=== PATIENT | female | born 1980 | race Caucasian/White ===

== ENCOUNTER 2017-03-18 17:48 | Inpatient (IN) | payer MEDICAID ==
[~2017-03-18] VITALS: Ht 157.5 cm; Wt 51.4 kg
[2017-03-18 18:40] VITALS: BP 153/73
--- NOTE | 2017-03-18 23:10 | NUR ---
37 Y/O F W/C/O L THIGH PAIN/SWELLING X 1K GETTING WORSE X LAST FRIDAY. PT STATES WAS SEEN BY PMD AND REFERER TO ER FOR ULTRASOUND. DENIES ANY CHEST PAIN OR SOB. 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
[2017-03-18 23:40] LABS: BASOPHILS # (AUTO) 0.1 K/uL (0.00-0.22); EOSINOPHILS # (AUTO) 0.1 K/uL (0-0.4); EOSINOPHILS % (AUTO) 1.1 % (0.0-4.0); HEMOGLOBIN 10.2 g/dL (12.0-16.0); LYMPHOCYTES # (AUTO) 1.2 K/uL (2.5-16.5); LYMPHOCYTES % (AUTO) 12.2 % (20.5-51.1); MEAN CORPUSCULAR HEMOGLOBIN 23 pg (27-31); MEAN CORPUSCULAR HGB CONC 31 g/dL (33-37); MEAN CORPUSCULAR VOLUME 73 fL (80-94); MONOCYTES # (AUTO) 0.5 K/uL (0.8-1.0); MONOCYTES % (AUTO) 5.5 % (1.7-9.3); NEUTROPHILS # (AUTO) 7.7 K/uL (1.8-7.7); NEUTROPHILS % (AUTO) 80.2 % (42.2-75.2); PLATELET COUNT (AUTO) 340 K/uL (140-450); RED BLOOD CELL COUNT(AUTO) 4.51 MIL/uL (4.20-5.40); RED CELL DISTRIBUTION WIDTH 16.7 % (11.6-13.7); WHITE BLOOD COUNT (AUTO) 9.6 K/uL (4.8-10.8)
[2017-03-18 23:50] LABS: ANION GAP 11.3 (8-16); CARBON DIOXIDE 26.5 mmol/L (21-32); CREATININE 0.6 mg/dL (0.6-1.3); POTASSIUM 3.8 mmol/L (3.5-5.1)
[2017-03-18 23:56] LABS: ALBUMIN 3.5 g/dL (3.4-5.0); TOTAL BILIRUBIN 0.4 mg/dL (0.0-1.0)
[2017-03-19] MEDS ORDERED: HEPARIN PER PHARMACY MC PRN ×2 (00:15→01:10)
[2017-03-19 00:30] LABS: PROTHROMBIN TIME 11.6 secs (10.8-13.4)
[2017-03-19] MEDS ORDERED: hePARIN / DEXT 5% PREMIX 250 ML IV ONE (00:35)
--- NOTE | 2017-03-19 00:48 | NUR ---
ULTRASOUND FOR LOWER EXTREMITY: IMPRESSION +DTV TO MAJORITY OF LOWER EXTREMITY.
[2017-03-19] MEDS ORDERED: methylPREDNISolone SS 125 MG in WATER STERILE 2 ML IV ONE (01:05)
[2017-03-19] MEDS ORDERED: diphenhydrAMINE 50 MG/ML VIAL IVP ONE (01:05)
[2017-03-19] MEDS ORDERED: MORPHINE SULFATE 2 MG/ML SYR IVP PRN (01:10)
[2017-03-19] MEDS ORDERED: DOCUSATE SODIUM 100 MG GELCAP PO PRN (01:10)
[2017-03-19] MEDS ORDERED: ACETAMINOPHEN 325 MG TAB PO PRN (01:10)
[2017-03-19] MEDS ORDERED: hePARIN / DEXT 5% PREMIX 250 ML IV SCH (01:10)
[2017-03-19 01:39] LABS: CHOL/HDL RATIO 2.5 (1-4.5); FREE T4 (FREE THYROXINE) 1.13 ng/dL (0.76-1.46); MAGNESIUM 2.3 mg/dL (1.8-2.4); PHOSPHORUS 2.4 mg/dL (2.5-4.9); THYROID STIMULATING HORMONE 1.46 uIU/mL (0.34-3.74)
[2017-03-19 01:44] LABS: APPEARANCE,URINE SL CLOUDY (CLEAR); BILIRUBIN,URINE NEGATIVE (NEGATIVE); BLOOD, URINE 3+ (NEGATIVE); COLOR,URINE YELLOW (YELLOW); LEUKOCYTE ESTERASE ,URINE NEGATIVE (NEGATIVE); NITRITE, URINE NEGATIVE (NEGATIVE); PH,URINE 7.5 (5.0-9.0); UGLUCOSE NEGATIVE (NEGATIVE)
[2017-03-19 02:16] LABS: RBC,URINE TOO NUMEROUS TO COUN /HPF (0-5); WBC,URINE 0-5 (RARE) /HPF (0-5)
[2017-03-19 06:50] LABS: BASOPHILS % (AUTO) 0.3 % (0.0-2.0); EOSINOPHILS % (AUTO) 0.2 % (0.0-4.0); HEMATOCRIT 32.5 % (36-48); HEMOGLOBIN 10.4 g/dL (12.0-16.0); LYMPHOCYTES # (AUTO) 0.6 K/uL (2.5-16.5); LYMPHOCYTES % (AUTO) 4.7 % (20.5-51.1); MEAN CORPUSCULAR HEMOGLOBIN 23 pg (27-31); MEAN CORPUSCULAR HGB CONC 32 g/dL (33-37); MEAN CORPUSCULAR VOLUME 73 fL (80-94); MONOCYTES # (AUTO) 0.1 K/uL (0.8-1.0); MONOCYTES % (AUTO) 0.7 % (1.7-9.3); NEUTROPHILS # (AUTO) 11.1 K/uL (1.8-7.7); NEUTROPHILS % (AUTO) 94.1 % (42.2-75.2); PLATELET COUNT (AUTO) 322 K/uL (140-450); RED BLOOD CELL COUNT(AUTO) 4.48 MIL/uL (4.20-5.40); RED CELL DISTRIBUTION WIDTH 16.7 % (11.6-13.7); WHITE BLOOD COUNT (AUTO) 11.8 K/uL (4.8-10.8)
--- NOTE | 2017-03-19 07:09 | NUR ---
Pt report given to LYNN HAYDEN . Transfer of care at this time.
--- NOTE | 2017-03-19 07:15 | NUR ---
ASSUME CARE OF PT. A&OX4, VSS, EMILEE TO LOWEST LEVEL, BED RAIL UP, RESTING ON GURNEY.
[2017-03-19 07:39] LABS: ANION GAP 13.4 (8-16); CARBON DIOXIDE 25.4 mmol/L (21-32); CREATININE 0.6 mg/dL (0.6-1.3); POTASSIUM 3.8 mmol/L (3.5-5.1)
--- NOTE | 2017-03-19 08:45 | NUR ---
A&OX4, C/O LEFT LEG PAIN 01/30, GURNEY TO LOWEST LEVEL, BED RAIL UP, RESTING ON GURNEY.
[2017-03-19] MEDS: ONDANSETRON 4 MG/2 ML VIAL IM/IVP PRN (08:52)
[2017-03-19] MEDS: NACL 0.9% 1,000 ML IV SCH ×2 (09:01→17:15)
--- NOTE | 2017-03-19 09:20 | NUR ---
Patient will be admitted to care of DR. DUNBAR. Admited to ICU. Will go to room 5. Belongings list completed. Report to SHELLEY HAYDEN.
--- NOTE | 2017-03-19 09:20 | NUR ---
RECEIVED A REPORT FROM JOSI ED RN. AWAITING PT ARRIVAL.
--- NOTE | 2017-03-19 09:40 | NUR ---
PT ARRIVED TO UNIT VIA GURNEY. AAOX4. ON ROOM AIR. NSR ON THE MONITOR. DENIES ANY PAIN OR DISCOMFORT AT THIS TIME. NO S/SX OF ACUTE DISTRESS NOTED. ABLE TO AMBULATE WITHOUT ANY DIFFICULTY. SKIN INTACT AND WARM TO TOUCH. IV RT AC 22G AND LT AC 20G. PATENT AND INTACT.ADMISSION ASSESSMENT COMPLETED. MRSA SCREEN DONE. SAFETY PRECAUTION. BED IN LOW POSITION, CALL LIGHT WITHIN REACH. BP 121/71, HR 99, RR 18, O2 99%, TEMP 98.9. WILL CONTINUE TO MONITOR.
--- NOTE | 2017-03-19 11:20 | NUR ---
PT TO RADIOLOGY FOR PULMONARY VQ SCAN.
[2017-03-19 12:00] VITALS: BP 129/87
--- NOTE | 2017-03-19 12:00 | NUR ---
PT RETURNED FROM RADIOLOGY AND BACK ON MONITOR.
--- NOTE | 2017-03-19 12:40 | NUR ---
PROVIDED LUNCH TRAY. PT STABLE AND NO S/SX OF ACUTE DISTRESS. WILL CONTINUE TO MONITOR.
[2017-03-19] MEDS ORDERED: ASPI81CT89 PO (12:47)
[2017-03-19 13:33] LABS: PROTHROMBIN TIME 11.3 secs (10.8-13.4)
--- NOTE | 2017-03-19 14:08 | NUR ---
CONTINUE ON HEPARIN DRIP PROTOCOL. WILL CONTINUE TO MONITOR.
[2017-03-19 16:00] VITALS: BP 94/50
--- NOTE | 2017-03-19 16:26 | NUR ---
PT STABLE. DENIES ANY PAIN AT THIS TIME. WILL CONTINUE TO MONITOR
[2017-03-19] MEDS: WARFARIN 5 MG TAB PO SCH (17:15)
--- NOTE | 2017-03-19 17:56 | NUR ---
REPORT GIVEN TO CATRACHO RING. PT WILL BE TRANSFERRED TO TELE UNIT. PT STABLE
--- NOTE | 2017-03-19 17:57 | NUR ---
RECEIVED REPORT FROM ICU NURSE SHELLEY VIA PHONE. WILL GET ROOM READY FOR PT AND AWAIT ARRIVAL TO UNIT.
--- NOTE | 2017-03-19 18:25 | NUR ---
PT WAS TRANSFERRED TO TELE UNIT ROOM 111B AND ENDORSED CARE TO CATRACHO COON. PT STABLE AND NO S/SX OF ACUTE DISTRESS.
--- NOTE | 2017-03-19 18:25 | NUR ---
PT ARRIVED TO UNIT VIA WHEELCHAIR ACCOMPANIED BY RNS. PT AMBULATED TO BED INDEPENDENTLY WITH STEADY GAIT. PT PLACED ON TELE MONITOR. PT IN STABLE CONDITION. VS: BP 120/77 HR 85 RR 18 O2 SAT 99% TEMP 98.5
[2017-03-19 18:41] LABS: PROTHROMBIN TIME 11.4 secs (10.8-13.4)
--- NOTE | 2017-03-19 19:10 | NUR ---
ENDORSED PT TO FUEL ATTENDANT NURSE CAM AT BEDSIDE FOR CONTINUITY OF CARE. PT GOT UP TO USE BATHROOM. PT IN STABLE CONDITION.
--- NOTE | 2017-03-19 19:40 | NUR ---
PT AMBULATED BACK TO BED WITH STEADY GAIT, TOLERABLE LEFT LEG PAIN ON AMBULATION NOTED BUT DENIES ANY PAIN WHILE AT REST, PEDAL PULSE PALPATED, VITAL SIGNS STABLE, NO SOB NOTED, HEPARIN DRIP INFUSING AT 9.3ML/H, ON HEPARIN PROTOCOL, PLAN OF CARE DISCUSSED, SAFETY MEASURES IN PLACE, CALL LIGHT WITHIN REACH.
[2017-03-19 20:00] VITALS: BP 137/68
--- NOTE | 2017-03-19 21:30 | NUR ---
ROUNDED ON PT, WATCHING TV, NO SIGNS OF DISTRESS, ALL NEEDS ATTENDED.
[2017-03-19] MEDS: HYDROcodone/APAP 7.5/325 MG 1 TAB PO PRN (23:12)
--- NOTE | 2017-03-19 23:20 | NUR ---
PT COMPLAINING OF LEFT LEG PAIN, VITAL SIGNS STABLE, MEDICATED PRN WITH NORCO PO, HEPARIN INFUSING WELL, CONTINUE TO MONITOR CLOSELY.
[2017-03-20] VITALS: BP 96/60
[2017-03-20] MEDS: hePARIN / DEXT 5% PREMIX 250 ML IV SCH (03:59)
[2017-03-20 04:00] VITALS: BP 94/61
--- NOTE | 2017-03-20 04:00 | NUR ---
PT SLEEPING, EASILY AROUSABLE, DENIES ANY PAIN, NEW HEPARIN BAG STARTED AT RATE OF 9.3ML/H, MONITORED CLOSELY.
[2017-03-20 05:42] LABS: BASOPHILS # (AUTO) 0.1 K/uL (0.00-0.22); BASOPHILS % (AUTO) 1.3 % (0.0-2.0); EOSINOPHILS # (AUTO) 0.1 K/uL (0-0.4); EOSINOPHILS % (AUTO) 0.8 % (0.0-4.0); HEMATOCRIT 30.9 % (36-48); HEMOGLOBIN 9.4 g/dL (12.0-16.0); LYMPHOCYTES # (AUTO) 2.7 K/uL (2.5-16.5); LYMPHOCYTES % (AUTO) 27.3 % (20.5-51.1); MEAN CORPUSCULAR HEMOGLOBIN 22 pg (27-31); MEAN CORPUSCULAR HGB CONC 31 g/dL (33-37); MEAN CORPUSCULAR VOLUME 73 fL (80-94); MONOCYTES # (AUTO) 0.6 K/uL (0.8-1.0); MONOCYTES % (AUTO) 6.4 % (1.7-9.3); NEUTROPHILS # (AUTO) 6.4 K/uL (1.8-7.7); NEUTROPHILS % (AUTO) 64.2 % (42.2-75.2); PLATELET COUNT (AUTO) 293 K/uL (140-450); RED BLOOD CELL COUNT(AUTO) 4.24 MIL/uL (4.20-5.40); RED CELL DISTRIBUTION WIDTH 17.4 % (11.6-13.7); WHITE BLOOD COUNT (AUTO) 9.9 K/uL (4.8-10.8)
--- NOTE | 2017-03-20 06:10 | NUR ---
PT SLEEPING, NO SIGNS OF DISTRESS, HEPARIN DRIP INFUSING WELL AT 9.3ML/H, ON HEPARIN DRIP PROTOCOL, MONITORED CLOSELY.
[2017-03-20] MEDS ORDERED: WARFARIN 5 MG TAB PO ONE (06:25)
[2017-03-20 06:31] LABS: ANION GAP 10.7 (8-16); CARBON DIOXIDE 25.3 mmol/L (21-32); CREATININE 0.6 mg/dL (0.6-1.3)
[2017-03-20 06:35] LABS: PROTHROMBIN TIME 13.5 secs (10.8-13.4)
[2017-03-20 06:40] LABS: MAGNESIUM 2.2 mg/dL (1.8-2.4); PHOSPHORUS 3.3 mg/dL (2.5-4.9)
--- NOTE | 2017-03-20 07:18 | NUR ---
PT SLEEPING, NO SIGNS OF DISTRESS, REPORT GIVEN TO CATRACHO STOKES FOR CONTINUITY IF CARE.
--- NOTE | 2017-03-20 07:20 | NUR ---
RECEIVED REPORT AT BEDSIDE FROM CATRACHO LEVY. PT SLEEPING IN BED. AAOX4. NO S/S OF ACUTE DISTRESS. PT DENIES PAIN. IV SITES PATENT AND INTACT. PLAN OF CARE DISCUSSED WITH PATIENT. PATIENT VERBALIZED UNDERSTANDING. PT STATES SHE IS OKAY SPEAKING IN LATVIAN AND [place]THER[place] IRISH. CALL LIGHT WITHIN REACH. SAFETY MEASURES ENSURED. WILL CONTINUE TO MONITOR.
[2017-03-20 07:35] VITALS: BP 94/66
--- NOTE | 2017-03-20 08:10 | NUR ---
PATIENT HAS BEEN SCREENED AND CATEGORIZED LOW NUTRITION RISK. PATIENT WILL BE SEEN WITHIN 7 DAYS OF ADMISSION. 03/25/[address]
[2017-03-20 08:20] LABS: T4 (THYROXINE) 6.9 ug/dL (4.5-12.0)
--- NOTE | 2017-03-20 08:47 | NUR ---
PT EATING BREAKFAST IN BED. NO S/S OF ACUTE DISTRESS. PT DENIES PAIN. CALL LIGHT WITHIN REACH. SAFETY MEASURES ENSURED. WILL CONTINUE TO MONITOR.
[2017-03-20] MEDS: HYDROcodone/APAP 7.5/325 MG 1 TAB PO PRN ×2 (08:53→22:24)
--- NOTE | 2017-03-20 08:53 | NUR ---
HELPED PT AMBULATE TO BATHROOM, WHEN BACK IN BED PT STATES LEG HAS STARTED THROBBING. MEDICATED ORDERED
--- NOTE | 2017-03-20 10:31 | NUR ---
PT RESTING IN BED NO S/S OF ACUTE DISTRESS. PT DENIES PAIN. CALL LIGHT WITHIN REACH. SAFETY MEASURES ENSURED. WILL CONTINUE TO MONITOR.
[2017-03-20] MEDS: NACL 0.9% 1,000 ML IV SCH (10:38)
[2017-03-20 12:00] VITALS: BP 116/76
--- NOTE | 2017-03-20 12:14 | NUR ---
PT RESTING IN BED. NO S/S OF ACUTE DISTRESS. PT DENIES PAIN. FAMILY AT BEDSIDE. WILL CONTINUE TO MONITOR.
[2017-03-20 12:18] LABS: FOLIC ACID 16.6 ng/mL (>3.0)
[2017-03-20] MEDS: ONDANSETRON 4 MG/2 ML VIAL IM/IVP PRN (14:23)
--- NOTE | 2017-03-20 14:25 | NUR ---
PT STATES SHE FEELS NAUSEOUS. MEDICATED ORDERED. WILL CONTINUE TO MONITOR.
[2017-03-20 16:00] VITALS: BP 111/68
--- NOTE | 2017-03-20 16:59 | NUR ---
PT SLEEPING IN BED. NO S/S OF ACUTE DISTRESS. WILL CONTINUE TO MONITOR.
[2017-03-20] MEDS: FERROUS SULFATE 325 MG TABEC PO SCH (17:11)
[2017-03-20] MEDS: WARFARIN 5 MG TAB PO SCH (17:13)
--- NOTE | 2017-03-20 19:19 | NUR ---
ENDORSED PLAN OF CARE TO NIGHT RN AT [facility]. WILL CONTINUE TO MONITOR.
--- NOTE | 2017-03-20 19:25 | NUR ---
RECEIVED REPORT FROM DAY RN. PATIENT RESTING IN BED, AWAKE ALERT ORIENTED X4. NO S/S OF ACUTE DISTRESS NOTED, RESPIRATION EVEN AND UNLABORED. IV ON LT AC PATENT AND INTACT, HEPARIN DRIP INFUSING AT 930 UNITS /HR. IV ON RT AC INTACT AND PATENT, INFUSING NS AT 60ML/HR. CALL LIGHT WITHIN REACH, SAFETY MEASURE ENSURED, WILL CONTINUE TO MONITOR.
[2017-03-20 20:00] VITALS: BP 106/59
--- NOTE | 2017-03-20 22:25 | NUR ---
PATIENT STATED, LEG PAIN 6/10. PAIN MEDICATION GIVEN ORDERED, NO S/S OF ACUTE DISTRESS NOTED, RESPIRATION EVEN AND UNLABORED, WILL CONTINUE TO MONITOR.
[2017-03-21] VITALS: BP 98/56
--- NOTE | 2017-03-21 00:12 | NUR ---
PATIENT IS SLEEPING AT THIS TIME. NO S/S OF ACUTE DISTRESS NOTED, RESPIRATION EVEN AND UNLABORED, CALL LIGHT WITHIN REACH, SAFETY MEASURE ENSURED WILL CONTINUE TO MONITOR.
[2017-03-21] MEDS: NACL 0.9% 1,000 ML IV SCH ×2 (03:25→20:12)
[2017-03-21 04:00] VITALS: BP 96/55
--- NOTE | 2017-03-21 04:01 | NUR ---
PATIENT IS IN STABLE CONDITION, NO S/S OF ACUTE DISTRESS NOTED, RESPIRATION EVEN AND UNLABORED, CALL LIGHT WITHIN REACH, SAFETY MEASURE ENSURED, WILL CONTINUE TO MONITOR.
[2017-03-21 06:31] LABS: BASOPHILS # (AUTO) 0.1 K/uL (0.00-0.22); BASOPHILS % (AUTO) 1.2 % (0.0-2.0); EOSINOPHILS # (AUTO) 0.1 K/uL (0-0.4); EOSINOPHILS % (AUTO) 0.8 % (0.0-4.0); HEMATOCRIT 32.8 % (36-48); HEMOGLOBIN 10.6 g/dL (12.0-16.0); LYMPHOCYTES # (AUTO) 2.7 K/uL (2.5-16.5); LYMPHOCYTES % (AUTO) 27.7 % (20.5-51.1); MEAN CORPUSCULAR HEMOGLOBIN 23 pg (27-31); MEAN CORPUSCULAR HGB CONC 32 g/dL (33-37); MEAN CORPUSCULAR VOLUME 73 fL (80-94); MONOCYTES # (AUTO) 0.6 K/uL (0.8-1.0); MONOCYTES % (AUTO) 5.9 % (1.7-9.3); NEUTROPHILS # (AUTO) 6.1 K/uL (1.8-7.7); NEUTROPHILS % (AUTO) 64.4 % (42.2-75.2); PLATELET COUNT (AUTO) 290 K/uL (140-450); RED BLOOD CELL COUNT(AUTO) 4.52 MIL/uL (4.20-5.40); RED CELL DISTRIBUTION WIDTH 17.3 % (11.6-13.7); WHITE BLOOD COUNT (AUTO) 9.6 K/uL (4.8-10.8)
--- NOTE | 2017-03-21 06:31 | NUR ---
PATIENT SLEEPING AT THIS TIME, NO S/S OF ACUTE DISTRESS NOTED, RESPIRATION EVEN AND UNLABORED, WILL CONTINUE TO MONITOR.
[2017-03-21 06:47] LABS: MAGNESIUM 2.2 mg/dL (1.8-2.4); PHOSPHORUS 3.3 mg/dL (2.5-4.9)
[2017-03-21 06:50] LABS: PROTHROMBIN TIME 29.5 secs (10.8-13.4)
[2017-03-21] MEDS: hePARIN / DEXT 5% PREMIX 250 ML IV SCH (06:52)
[2017-03-21 06:56] LABS: CREATININE 0.6 mg/dL (0.6-1.3); POTASSIUM 4.1 mmol/L (3.5-5.1)
--- NOTE | 2017-03-21 07:30 | NUR ---
ENDORSED PLAN OF CARE TO DAY RN. PATIENT RESTING IN BED, IN STABLE CONDITION. NO S/S OF ACUTE DISTRESS NOTED.
[2017-03-21 07:31] LABS: ANION GAP 13.1 (8-16)
--- NOTE | 2017-03-21 07:31 | NUR ---
RECEIVED ON BED AAOX4. NO SOB NOTED. NO C/O PAIN AT THIS TIME. IV TO RT AND LT AC PATENT AND INTACT. PT ON HEPARIN DRIP AT 930 UNITS/HR. CHEST CLEAR. ABDOMEN SOFT, BOWEL SOUNDS PRESENT. NO EDEMA NOTED. INSTRUCTED PT TO CALL FOR ASSISTANCE, CALL LIGHT WITHIN REACH. PT VERBALIZED UNDERSTANDING.
[2017-03-21 08:00] VITALS: BP 119/71
[2017-03-21] MEDS: ASCORBIC ACID 500 MG TAB PO SCH (09:39)
[2017-03-21] MEDS: FERROUS SULFATE 325 MG TABEC PO SCH ×3 (09:39→18:09)
[2017-03-21] MEDS: HYDROcodone/APAP 7.5/325 MG 1 TAB PO PRN ×2 (09:40→18:10)
--- NOTE | 2017-03-21 09:44 | NUR ---
HEPARIN DRIP DISCONTINUED ORDERED.
[2017-03-21] MEDS: ONDANSETRON 4 MG/2 ML VIAL IM/IVP PRN (10:57)
--- NOTE | 2017-03-21 11:00 | NUR ---
PT C/O NAUSEA, MEDICATED WITH ZOFRAN IVP ORDERED PRN.
[2017-03-21 12:00] VITALS: BP 124/70
--- NOTE | 2017-03-21 12:00 | NUR ---
PT REFUSED FERROUS SULFATE TAB FOR NOW, PT WAS NAUSEATED
--- NOTE | 2017-03-21 15:00 | NUR ---
PT AMBULATING TO THE BATHROOM INDEPENDENTLY. ACTIVITY TOLERATED WELL. NO COMPLAINTS MADE.
[2017-03-21 16:00] VITALS: BP 122/76
[2017-03-21] MEDS ORDERED: ONDANSETRON 4 MG TAB PO PRN (17:25)
--- NOTE | 2017-03-21 18:50 | NUR ---
PT AWAKE, TALKING TO ROOM MATE. NO SOB NOTED. NO C/O PAIN AT THIS TIME. WILL ENDORSE TO NEXT SHIFT NURSE FOR CONTINUITY OF CARE.
--- NOTE | 2017-03-21 19:40 | NUR ---
RECEIVED REPORT FROM DAY RN, PATIENT RESTING IN BED, AWAKE, ALERT, ORIENTED X4, NO S/S OF ACUTE DISTRESS NOTED, RESPIRATION EVEN AND UNLABORED. IV INTACT AND PATENT, INFUSING NS AT 60ML/HR. PLAN OF CARE DISCUSSED, VERBALIZED UNDERSTANDING, CALL LIGHT WITHIN REACH, SAFETY MEASURE ENSURED, WILL CONTINUE TO MONITOR.
[2017-03-21 20:00] VITALS: BP 131/75
--- NOTE | 2017-03-21 22:50 | NUR ---
PATIENT WENT TO THE BATHROOM, VOIDED X1. PATIENT RESTING IN BED, NO S/S OF ACUTE DISTRESS NOTED, RESPIRATION EVEN AND UNLABORED, CALL LIGHT WITHIN REACH, SAFETY MEASURE ENSURED ,WILL CONTINUE TO MONITOR.
[2017-03-22] VITALS: BP 110/66
--- NOTE | 2017-03-22 00:14 | NUR ---
PATIENT IS SLEEPING AT THIS TIME. NO S/S OF ACUTE DISTRESS NOTED, RESPIRATION EVEN AND UNLABORED, WILL CONTINUE TO MONITOR.
--- NOTE | 2017-03-22 02:15 | NUR ---
PATIENT IS IN STABLE CONDITION. NO S/S OF ACUTE DISTRESS NOTED, RESPIRATION EVEN AND UNLABORED, WILL CONTINUE TO MONITOR.
[2017-03-22] MEDS: HYDROcodone/APAP 7.5/325 MG 1 TAB PO PRN ×2 (03:44→11:31)
[2017-03-22 04:00] VITALS: BP 111/76
--- NOTE | 2017-03-22 04:11 | NUR ---
PATIENT REQUESTED PAIN MEDICATION FOR HER LT LOWER EXTREMITY PAIN. PAIN 5/10. MEDICATION GIVEN ORDERED, NO S/S OF ACUTE DISTRESS NOTED, RESPIRATION EVEN AND UNLABORED, WILL CONTINUE TO MONITOR.
--- NOTE | 2017-03-22 06:23 | NUR ---
PATIENT IS SLEEPING AT THIS TIME NO S/S OF ACUTE DISTRESS NOTED, RESPIRATION EVEN AND UNLABORED, CALL LIGHT WITHIN REACH, SAFETY MEASURE ENSURED, WILL CONTINUE TO MONITOR.
[2017-03-22 07:12] LABS: BASOPHILS # (AUTO) 0.2 K/uL (0.00-0.22); BASOPHILS % (AUTO) 1.8 % (0.0-2.0); EOSINOPHILS # (AUTO) 0.1 K/uL (0-0.4); EOSINOPHILS % (AUTO) 0.9 % (0.0-4.0); HEMOGLOBIN 9.6 g/dL (12.0-16.0); LYMPHOCYTES # (AUTO) 1.7 K/uL (2.5-16.5); LYMPHOCYTES % (AUTO) 18.9 % (20.5-51.1); MEAN CORPUSCULAR HEMOGLOBIN 23 pg (27-31); MEAN CORPUSCULAR HGB CONC 31 g/dL (33-37); MEAN CORPUSCULAR VOLUME 73 fL (80-94); MONOCYTES # (AUTO) 0.4 K/uL (0.8-1.0); MONOCYTES % (AUTO) 4.9 % (1.7-9.3); NEUTROPHILS # (AUTO) 6.5 K/uL (1.8-7.7); NEUTROPHILS % (AUTO) 73.5 % (42.2-75.2); PLATELET COUNT (AUTO) 286 K/uL (140-450); RED BLOOD CELL COUNT(AUTO) 4.23 MIL/uL (4.20-5.40); RED CELL DISTRIBUTION WIDTH 17.2 % (11.6-13.7); WHITE BLOOD COUNT (AUTO) 8.9 K/uL (4.8-10.8)
--- NOTE | 2017-03-22 07:15 | NUR ---
ENDORSED PLAN OF CARE TO DAY RN. PATIENT IN STABLE CONDITION. NO S/S OF ACUTE DISTRESS.
--- NOTE | 2017-03-22 07:15 | NUR ---
RECEIVED PLAN OF CARE FROM NIGHT NURSE, PT IS AAADITYA4 AZERI SPEAKING, ON ROOM AIR, IV LEFT AC 20G SALINE LOCK, RIGHT AC 22 G INFUSING WELL, SKIN INTACT, INITIAL ASSESSMENT COMPLETED, REVIEWED PLAN OF CARE WITH PT, PT VERBALIZED UNDERSTANDING, ALL SAFETY PRECAUTIONS MET, CALL LIGHT WITHIN REACH. WILL CONTINUE TO MONITOR.
[2017-03-22 07:26] LABS: ANION GAP 8.7 (8-16); CARBON DIOXIDE 29.6 mmol/L (21-32); CREATININE 0.6 mg/dL (0.6-1.3); POTASSIUM 4.3 mmol/L (3.5-5.1)
[2017-03-22 07:57] LABS: MAGNESIUM 2.2 mg/dL (1.8-2.4); PHOSPHORUS 3.6 mg/dL (2.5-4.9)
[2017-03-22 08:00] VITALS: BP 109/70
[2017-03-22 08:01] LABS: PROTHROMBIN TIME 40.5 secs (10.8-13.4)
[2017-03-22] MEDS: FERROUS SULFATE 325 MG TABEC PO SCH ×2 (08:36→11:31)
[2017-03-22] MEDS: ASCORBIC ACID 500 MG TAB PO SCH (08:37)
--- NOTE | 2017-03-22 08:38 | NUR ---
DUE MEDICATIONS GIVEN, PT TOLERATED WELL, PT CURRENTLY RESTING IN BED, ALL NEEDS MET. WILL CONTINUE TO MONITOR
--- NOTE | 2017-03-22 11:33 | NUR ---
PT C/O OF PAIN OF 10, MEDICATION GIVEN PER MD ORDERS, PT RESTING ON BED, NO DISTRESS NOTED, CALL LIGHT WITHIN REACH.
[2017-03-22 12:00] VITALS: BP 107/80
--- NOTE | 2017-03-22 13:10 | NUR ---
PT SLEEPING EASY TO AROUSE, NO DISTRESS NOTED, CALL LIGHT WITHIN REACH.
[2017-03-22] MEDS ORDERED: WARF2.5T77 PO ×2 (14:50→15:55)
--- NOTE | 2017-03-22 15:15 | NUR ---
DISCUSSED DISCHARGE PLAN WITH PT, PT STATED UNDERSTANDING.
--- NOTE | 2017-03-22 16:09 | NUR ---
DISCHARGE EDUCATION GIVEN , MEDICATION EDUCATION GIVEN, DIET EDUCATION GIVEN, DVT AND WARFARIN EDUCATION GIVEN, FOLLOW UP INFORMATION GIVEN, PRESCRIPTION INFORMATION GIVEN, PT STATED UNDERSTANDING. IV REMOVED FROM BOTH ARMS, CATHETER INTACT. ALL BELONGING WITH PATIENT. FAMILY BY BEDSIDE.
--- NOTE | 2017-03-22 16:14 | NUR ---
PT WAS WHEELED OUT TO LOBBY ON STABLE CONDITION, ACCOMPANIED WITH FAMILY.
== END 2017-03-22 16:14 | disposition home or self-care (01) | DRG 197 ==
LOC: MED 17:48 → MIC 03-19 01:06 → MTU 03-19 18:30
PROVIDERS: ADMIT Family Medicine Sports Medicine; ATTEND Family Medicine Sports Medicine
DX: I82.442 Acute embolism and thrombosis of left tibial vein (principal); D50.9 Iron deficiency anemia, unspecified; I82.412 Acute embolism and thrombosis of left femoral vein; R31.9 Hematuria, unspecified; I82.432 Acute embolism and thrombosis of left popliteal vein; Z88.0 Allergy status to penicillin
CPT/HCPCS: 36415; 71010; 78582; 80048; 80053; 81001; 81025; 82607; 82728; 82746; 83036; 83540; 83735; 84100; 84436; 84439; 84443; 84479; 85025; 85045; 85379; 85610; 85730; 87081; 93005; 93970; 93971; 96365; 96366; 96375; 99285; J1200; J1644; J2270; J2405; J2930; J7030; Q0092

== ENCOUNTER 2017-03-26 17:04 | Emergency (ER) | payer MEDICAID ==
[~2017-03-26] VITALS: Ht 154.9 cm; Wt 51.3 kg
[~2017-03-26 17:04] MED LIST: ASPIRIN81 M1 PO; COUMADIN2.5 MG PO
[2017-03-26 17:20] VITALS: BP 134/70
[2017-03-26 19:39] VITALS: BP 112/86
== END 2017-03-26 19:35 | disposition home or self-care (01) ==
LOC: MED 17:04
DX: I82.4Z2 Acute embolism and thrombosis of unspecified deep veins of left distal lower extremity (principal); Z88.0 Allergy status to penicillin; Z88.2 Allergy status to sulfonamides
CPT/HCPCS: 36415; 80053; 85025; 85610; 85730; 93971; 99285; Q0092

== ENCOUNTER 2017-04-21 15:44 | Inpatient (IN) | payer MEDICAID ==
[~2017-04-21] VITALS: Ht 152.4 cm; Wt 47.4 kg
[~2017-04-21 15:44] MED LIST changes: -ASPIRIN81 M1 PO; -COUMADIN2.5 MG PO; +WARF2.5T77 PO
[2017-04-21 16:28] VITALS: BP 109/74
--- NOTE | 2017-04-21 17:14 | NUR ---
37/F C/O RIGHT CALF PAIN 7/10 WITH PRESSURE TODAY.DENIES N/V/D; SKIN IS PINK/WARM/DRY; AAOX4 WITH EVEN AND STEADY GAIT; LUNGS CLEAR BL; HR EVEN AND REGULAR; PT DENIES ANY FEVER, CP, SOB, OR COUGH AT THIS TIME; PATIENT STATES PAIN OF 7/10 AT THIS TIME; VSS; PATIENT POSITIONED FOR COMFORT; HOB ELEVATED; BEDRAILS UP X2; BED DOWN. ER MD MADE AWARE OF PT STATUS.
--- NOTE | 2017-04-21 17:16 | NUR ---
Patient being evaluated by DR STEWART at bedside.
--- NOTE | 2017-04-21 17:22 | NUR ---
US AT BEDSIDE.
[2017-04-21 18:25] LABS: BASOPHILS # (AUTO) 0.1 K/uL (0.00-0.22); BASOPHILS % (AUTO) 0.6 % (0.0-2.0); EOSINOPHILS # (AUTO) 0.1 K/uL (0-0.4); EOSINOPHILS % (AUTO) 0.9 % (0.0-4.0); HEMATOCRIT 32.2 % (36-48); HEMOGLOBIN 10.1 g/dL (12.0-16.0); LYMPHOCYTES # (AUTO) 2.2 K/uL (2.5-16.5); LYMPHOCYTES % (AUTO) 22.5 % (20.5-51.1); MEAN CORPUSCULAR HEMOGLOBIN 23 pg (27-31); MEAN CORPUSCULAR HGB CONC 31 g/dL (33-37); MEAN CORPUSCULAR VOLUME 73 fL (80-94); MONOCYTES # (AUTO) 0.6 K/uL (0.8-1.0); MONOCYTES % (AUTO) 6.5 % (1.7-9.3); NEUTROPHILS # (AUTO) 6.9 K/uL (1.8-7.7); NEUTROPHILS % (AUTO) 69.5 % (42.2-75.2); PLATELET COUNT (AUTO) 394 K/uL (140-450); RED BLOOD CELL COUNT(AUTO) 4.44 MIL/uL (4.20-5.40); RED CELL DISTRIBUTION WIDTH 16.3 % (11.6-13.7); WHITE BLOOD COUNT (AUTO) 9.9 K/uL (4.8-10.8)
[2017-04-21 18:39] LABS: ANION GAP 11.3 (8-16); CARBON DIOXIDE 29.8 mmol/L (21-32); CREATININE 0.8 mg/dL (0.6-1.3); POTASSIUM 4.1 mmol/L (3.5-5.1)
[2017-04-21 18:44] LABS: ALBUMIN 3.4 g/dL (3.4-5.0); PROTHROMBIN TIME 16.6 secs (10.8-13.4); TOTAL BILIRUBIN 0.3 mg/dL (0.0-1.0)
--- NOTE | 2017-04-21 18:53 | NUR ---
GAVE REPORT TO CATRACHO FERNÁNDEZ.
--- NOTE | 2017-04-21 18:54 | NUR ---
Patient will be admitted to care of DR SOTO. Admited to TELE. Will go to room 105B. Belongings list completed. Report to CATRACHO FERNÁNDEZ.
[2017-04-21] MEDS ORDERED: ACETAMINOPHEN 325 MG TAB PO PRN (18:55)
[2017-04-21] MEDS ORDERED: ONDANSETRON 4 MG/2 ML VIAL IM/IVP PRN (18:55)
[2017-04-21] MEDS ORDERED: DOCUSATE SODIUM 100 MG GELCAP PO PRN (18:55)
[2017-04-21] MEDS ORDERED: HYDROcodone/APAP 7.5/325 MG 1 TAB PO PRN (18:55)
[2017-04-21] MEDS ORDERED: HYDROmorphone 1 MG/ML AMP IVP PRN (18:55)
--- NOTE | 2017-04-21 19:00 | NUR ---
PT ARRIVED ON THE UNIT WITH 1 ER NURSE. PT IS AMBULATING FROM GURNEY TO BED. ASSISTED WITH TELE MONITOR AND GOT HER SETTLED IN BED. PT IS NAURUAN SPEAKING, VERY LITTLE NIGERIAN. SKIN INTACT. WILL ENDORSE PT AND ADMISSION TO THE SUB ASSEMBLY TEAM WORKER NURSE.
[2017-04-21 19:12] LABS: APPEARANCE,URINE CLEAR (CLEAR); BILIRUBIN,URINE NEGATIVE (NEGATIVE); BLOOD, URINE NEGATIVE (NEGATIVE); COLOR,URINE YELLOW (YELLOW); LEUKOCYTE ESTERASE ,URINE NEGATIVE (NEGATIVE); NITRITE, URINE NEGATIVE (NEGATIVE); PH,URINE 6.5 (5.0-9.0); UGLUCOSE NEGATIVE (NEGATIVE)
[2017-04-21 19:18] LABS: BARBITURATE, URINE NEG. ng/ml (NEG <=200); BENZODIAZEPINE, URINE NEG. ng/mL (NEG <=200); CANNABINOID, URINE NEG. ng/mL (NEG <=50); COCAINE, URINE NEG. ng/mL (NEG <=300); OPIATE, URINE NEG. ng/mL (NEG <=2000); PHENCYCLIDINE SCREEN,URINE NEG. ng/mL (NEG <=25)
[2017-04-21 19:32] LABS: CHOL/HDL RATIO 2.7 (1-4.5); FREE T4 (FREE THYROXINE) 0.99 ng/dL (0.76-1.46); MAGNESIUM 2.4 mg/dL (1.8-2.4); PHOSPHORUS 3.4 mg/dL (2.5-4.9); THYROID STIMULATING HORMONE 0.78 uIU/mL (0.34-3.74)
[2017-04-21 19:44] VITALS: BP 134/83
[2017-04-21] MEDS: NACL 0.9% 1,000 ML IV SCH (19:44)
--- NOTE | 2017-04-21 19:44 | NUR ---
Admitted from ER, with chief complaint of RIGHT LEG PAIN, DX RIGHT LLE DVT. ADMISSION PROCESS COMPLETED WITH THERAPIST RESPIRATORY SERVICE, KAMILLE #[id number]. 37 y/o, Female, Cooperative, PT RESTING IN BED, AOX4, AMBULATORY, ABLE TO VERBALIZE NEEDS, NIGERIAN-CHITINA, ABLE TO UNDERSTAND/SPEAK SOME YAKUT. PT DENIES CHEST PAIN, SOB OR S/S OF ACUTE DISTRESS. MARKETING SENIOR RECRUITER IN PLACE. REDNESS AND TENDERNESS NOTED ON RIGHT CALF. PT DENIES TENDERNESS/PAIN ON LEFT CALF. IV ACCESS ASYMPTOMATIC, PATENT AND INTACT. STARTED IVF AT THIS TIME, INFUSING WELL. DISCUSSED AND REVIEWED PLAN OF CARE WITH PT. PT VERBALIZED UNDERSTANDING. oriented to call light, bed, phone,television, bathroom, smoking policy, visiting hours, procedures, ID bracelet on. Belongings list checked. ALL NEEDS MET. SAFETY MEASURES ENSURED. CALL LIGHT WITHIN REACH. WILL CONTINUE TO MONITOR.
[2017-04-21] MEDS ORDERED: HEPARIN PER PHARMACY MC PRN (20:30)
[2017-04-21] MEDS: hePARIN / DEXT 5% PREMIX 250 ML IV SCH (21:42)
--- NOTE | 2017-04-21 21:42 | NUR ---
ADMINISTERED HEPARIN DRIP WITH HEPARIN BOLUS ORDERED WITH EDUCATION PER PROTOCOL WITH NEWSPAPER INSERTER. PT VERBALIZED UNDERSTANDING. NEW IV ACCESS 24G STARTED ON LEFT WRIST, CONTINUED IVF. ALL NEEDS MET. BOTH HEPARIN DRIP AND IVF INFUSING WELL. SAFETY MEASURES ENSURED. CALL LIGHT WITHIN REACH. WILL CONTINUE TO MONITOR.
--- NOTE | 2017-04-21 23:34 | NUR ---
PT RESTING COMFORTABLY IN BED, NO S/S OF ACUTE DISTRESS. SPO2 100% ON ROOM AIR, RR 16 UNLABORED. ALL NEEDS MET. HEPARIN DRIP AND IVF INFUSING WELL. SAFETY MEASURES ENSURED. CALL LIGHT WITHIN REACH. WILL CONTINUE TO MONITOR.
[2017-04-22] VITALS: BP 106/60
--- NOTE | 2017-04-22 02:15 | NUR ---
PT SLEEPING COMFORTABLY IN BED, NO S/S OF ACUTE DISTRESS. ALL NEEDS MET. HEPARIN DRIP AND IVF INFUSING WELL. SAFETY MEASURES ENSURED. CALL LIGHT WITHIN REACH. WILL CONTINUE TO MONITOR.
[2017-04-22 04:00] VITALS: BP 106/60
[2017-04-22] MEDS: hePARIN / DEXT 5% PREMIX 250 ML IV SCH ×5 (04:29→23:44)
--- NOTE | 2017-04-22 04:29 | NUR ---
PTT 114.1, HEPARIN DRIP PAUSED AT THIS TIME ORDERED PER PROTOCOL WITH 2 RN VERIFICATION AND EDUCATION. PT VERBALIZED UNDERSTANDING, WILL CONTINUE HEPARIN DRIP ORDERED IN 1 HOUR. ALL NEEDS MET. SPO2 98%, RR 18 UNLABORED. NO S/S OF ACUTE DISTRESS. HEPARIN DRIP PAUSED, IVF INFUSING WELL. SAFETY MEASURES ENSURED. CALL LIGHT WITHIN REACH. WILL CONTINUE TO MONITOR.
--- NOTE | 2017-04-22 05:29 | NUR ---
HEPARIN DRIP RESUMED AT 800 UNITS/HR ORDERED PER PROTOCOL WITH 2 RN VERIFICATION AND EDUCATION AT THIS TIME. PT VERBALIZED UNDERSTANDING. ALL NEEDS MET. NO S/S OF ACUTE DISTRESS. HEPARIN DRIP AND IVF INFUSING WELL. SAFETY MEASURES ENSURED. CALL LIGHT WITHIN REACH. WILL CONTINUE TO MONITOR.
[2017-04-22 06:45] LABS: BASOPHILS # (AUTO) 0.1 K/uL (0.00-0.22); BASOPHILS % (AUTO) 1.5 % (0.0-2.0); EOSINOPHILS # (AUTO) 0.1 K/uL (0-0.4); EOSINOPHILS % (AUTO) 1.3 % (0.0-4.0); HEMATOCRIT 30.1 % (36-48); HEMOGLOBIN 9.3 g/dL (12.0-16.0); LYMPHOCYTES # (AUTO) 1.3 K/uL (2.5-16.5); LYMPHOCYTES % (AUTO) 20.1 % (20.5-51.1); MEAN CORPUSCULAR HEMOGLOBIN 22 pg (27-31); MEAN CORPUSCULAR HGB CONC 31 g/dL (33-37); MEAN CORPUSCULAR VOLUME 72 fL (80-94); MONOCYTES # (AUTO) 0.5 K/uL (0.8-1.0); MONOCYTES % (AUTO) 7.5 % (1.7-9.3); NEUTROPHILS # (AUTO) 4.7 K/uL (1.8-7.7); NEUTROPHILS % (AUTO) 69.6 % (42.2-75.2); PLATELET COUNT (AUTO) 344 K/uL (140-450); RED BLOOD CELL COUNT(AUTO) 4.18 MIL/uL (4.20-5.40); RED CELL DISTRIBUTION WIDTH 16.5 % (11.6-13.7); WHITE BLOOD COUNT (AUTO) 6.7 K/uL (4.8-10.8)
[2017-04-22 06:53] LABS: ANION GAP 12.5 (8-16); CARBON DIOXIDE 26.5 mmol/L (21-32); CREATININE 0.6 mg/dL (0.6-1.3)
[2017-04-22 06:57] LABS: PROTHROMBIN TIME 17.2 secs (10.8-13.4)
--- NOTE | 2017-04-22 07:15 | NUR ---
ENDORSED PLAN OF CARE TO AM NURSE. CONDITION STABLE.
--- NOTE | 2017-04-22 07:25 | NUR ---
RECEIVED REPORT FROM PHOTO OPTICS TECHNICIAN NURSE, PT IS A/OX4, AMBULATORY, PT HAS IV ON THE LEFT HAND AND LEFT WRIST PATENT, INTACT, FLUSHING WELL, SKIN IS INTACT, NO S/S OF RESPIRATORY DISTRESS OR DISCOMFORT NOTED, DISCUSSED PLAN OF CARE WITH PT, PT VERBALIZED UNDERSTANDING, SAFETY/FALL PRECAUTIONS ARE IN PLACE, CALL LIGHT IS WITHIN REACH, WILL CONTINUE TO MONITOR.
[2017-04-22 08:00] VITALS: BP 137/83
[2017-04-22] MEDS: PANTOPRAZOLE 40 MG INJ VIAL IVP SCH (08:10)
[2017-04-22] MEDS: FERROUS SULFATE 325 MG TABEC PO SCH ×2 (08:10→17:25)
[2017-04-22] MEDS: NACL 0.9% 1,000 ML IV SCH ×3 (08:14→22:00)
--- NOTE | 2017-04-22 08:26 | NUR ---
PATIENT'S PTT IS 41.2 PER PROTOCOL WILL GIVE A 2, 000 UNIT BOLUS IV AND INCREASE RATE BY 100 UNIT. CURRENT HEPARIN DRIP IS NOW RUNNING AT 900 UNITS. NEXT PTT DRAW IS 1129 TODAY.
[2017-04-22 08:54] LABS: T4 (THYROXINE) 6.3 ug/dL (4.5-12.0)
--- NOTE | 2017-04-22 09:18 | NUR ---
PATIENT HAS BEEN SCREENED AND CATEGORIZED HIGH NUTRITION RISK. PATIENT WILL BE SEEN WITHIN 1-2 DAYS OF ADMISSION. 04/22/17-04/23/[address]
--- NOTE | 2017-04-22 11:15 | NUR ---
PATIENT RESTING IN BED WATCHING TV, NO S/S OF RESPIRATORY DISTRESS OR DISCOMFORT NOTED, CALL LIGHT WITHIN REACH.
[2017-04-22 12:00] VITALS: BP 129/92
--- NOTE | 2017-04-22 12:03 | NUR ---
RECEIVED CALL FROM LAB, NEW PTT IS 96.9, PER PROTOCOL WILL HOLD HEPARIN DRIP FOR ONE HOUR AND THEN DECREASE HEPARIN DRIP BY 100 UNIT.
--- NOTE | 2017-04-22 12:38 | NUR ---
04/22/17 RD INITIAL ASSESSMENT COMPLETED PLEASE REFER TO NUTRITION ASSESSMENT UNDER CARE ACTIVITY FOR ESTIMATED NUTRITIONAL NEEDS. 1. CONTINUE REGULAR DIET 2. PROVIDE NUTRITION EDUCATION NEEDED 3. RD TO FOLLOW UP WITHIN 2-3 DAYS; HIGH RISK BETSEY EVANS RD
--- NOTE | 2017-04-22 13:03 | NUR ---
HEPARIN DRIP RESTARTED AT 800UNITS/HR, PER PROTOCOL. NEXT PTT TO BE DRAWN AT 1730
[2017-04-22 16:00] VITALS: BP 128/77
[2017-04-22] MEDS ORDERED: WARFARIN 5 MG TAB PO SCH (17:00)
--- NOTE | 2017-04-22 17:41 | NUR ---
CALLED LAB TO ASK THEM IF THEY CAN COME A DRAW BLOOD TO CHECK THE PATIENT'S PTT BECAUSE THE PATIENT WAS ON HEPARIN DRIP. I LET THEM KNOW THE PTT SHOULD HAVE BEEN DRAWN AT 1730 AND ORDER WAS PUT IN EARLIER TODAY.
--- NOTE | 2017-04-22 18:08 | NUR ---
CALLED LAB SPOKE TO NICHOLAS I LET HER KNOW I WAS CALLING BECAUSE I WAS STILL WAITING FOR PTT TO BE DRAWN FOR THE PT ON HEPARIN DRIP THAT SHOULD'VE BEEN DRAWN AT 1730. PER [facility], GARDEN LABOURER HAD JUST LEFT TO BE ON THE FLOOR.
--- NOTE | 2017-04-22 19:21 | NUR ---
ENDORSED PT TO MUFF WINDER NURSE FOR CONTINUITY OF CARE, PT STABLE AT THIS TIME.
--- NOTE | 2017-04-22 19:25 | NUR ---
RECEIVED REPORT FROM AM NURSE. PT SITTING AT CHAIR, AOX4, AMBULATORY, ABLE TO VERBALIZE NEEDS, ABLE TO UNDERSTAND/SPEAK SOME GERMAN, ABLE TO VERBALIZE NEEDS. PT DENIES CHEST PAIN, SOB OR S/S OF ACUTE DISTRESS. FOOT GATHERER IN PLACE. REDNESS AND TENDERNESS NOTED ON RIGHT CALF. PT DENIES TENDERNESS/PAIN ON LEFT CALF. PT REFUSES PAIN MED AT THIS TIME. BOTH IV ACCESS ASYMPTOMATIC, PATENT AND INTACT. HEPARIN DRIP AND IVF INFUSING WELL. DISCUSSED AND REVIEWED PLAN OF CARE WITH PT. PT VERBALIZED UNDERSTANDING. ALL NEEDS MET. SAFETY MEASURES ENSURED. CALL LIGHT WITHIN REACH. WILL CONTINUE TO MONITOR.
[2017-04-22 20:00] VITALS: BP 111/71
--- NOTE | 2017-04-22 20:30 | NUR ---
PT ABLE TO AMBULATE WELL WITH STEADY GAIT AROUND UNIT. PT ABLE TO TOLERATE WELL. HEPARIN DRIP AND IVF INFUSING WELL.
--- NOTE | 2017-04-22 23:44 | NUR ---
PT SLEEPING COMFORTABLY, AROUSABLE BY NAME, NO S/S OF ACUTE DISTRESS. HEPARIN DRIP BAG CHANGED, RESUMED AT 800 UNITS/HR ORDERED PER PROTOCOL WITH 2 RN VERIFICATION AND EDUCATION AT THIS TIME. PT VERBALIZED UNDERSTANDING. ALL NEEDS MET. HEPARIN DRIP AND IVF INFUSING WELL. SAFETY MEASURES ENSURED. CALL LIGHT WITHIN REACH. WILL CONTINUE TO MONITOR.
[2017-04-23] VITALS: BP 107/65
--- NOTE | 2017-04-23 00:54 | NUR ---
RECEIVED CALL FROM LAB, PTT 68.2; NO CHANGE IN HEPARIN DRIP ORDERED PER PROTOCOL. WILL ORDER PTT LAB DRAW PER PROTOCOL.
--- NOTE | 2017-04-23 02:01 | NUR ---
PT SLEEPING COMFORTABLY, NO S/S OF ACUTE DISTRESS. ALL NEEDS MET. HEPARIN DRIP AND IVF INFUSING WELL. SAFETY MEASURES ENSURED. CALL LIGHT WITHIN REACH. WILL CONTINUE TO MONITOR.
[2017-04-23 04:00] VITALS: BP 100/61
--- NOTE | 2017-04-23 04:34 | NUR ---
PT SLEEPING COMFORTABLY, AROUSABLE TO NAME, NO S/S OF ACUTE DISTRESS, RESPIRATIONS EVEN AND UNLABORED. ALL NEEDS MET. HEPARIN DRIP AND IVF INFUSING WELL. SAFETY MEASURES ENSURED. CALL LIGHT WITHIN REACH. WILL CONTINUE TO MONITOR.
[2017-04-23 06:21] LABS: BASOPHILS # (AUTO) 0.2 K/uL (0.00-0.22); BASOPHILS % (AUTO) 3.3 % (0.0-2.0); EOSINOPHILS # (AUTO) 0.1 K/uL (0-0.4); HEMATOCRIT 29.3 % (36-48); HEMOGLOBIN 8.8 g/dL (12.0-16.0); LYMPHOCYTES # (AUTO) 1.7 K/uL (2.5-16.5); LYMPHOCYTES % (AUTO) 26.4 % (20.5-51.1); MEAN CORPUSCULAR HEMOGLOBIN 22 pg (27-31); MEAN CORPUSCULAR HGB CONC 30 g/dL (33-37); MEAN CORPUSCULAR VOLUME 73 fL (80-94); MONOCYTES # (AUTO) 0.6 K/uL (0.8-1.0); NEUTROPHILS # (AUTO) 3.9 K/uL (1.8-7.7); NEUTROPHILS % (AUTO) 60.3 % (42.2-75.2); PLATELET COUNT (AUTO) 308 K/uL (140-450); RED BLOOD CELL COUNT(AUTO) 4.03 MIL/uL (4.20-5.40); RED CELL DISTRIBUTION WIDTH 16.8 % (11.6-13.7); WHITE BLOOD COUNT (AUTO) 6.5 K/uL (4.8-10.8)
[2017-04-23 06:42] LABS: ANION GAP 11.9 (8-16); CARBON DIOXIDE 25.9 mmol/L (21-32); CREATININE 0.5 mg/dL (0.6-1.3); POTASSIUM 3.8 mmol/L (3.5-5.1); PROTHROMBIN TIME 17.7 secs (10.8-13.4)
--- NOTE | 2017-04-23 07:15 | NUR ---
ENDORSED PLAN OF CARE TO AM NURSE. CONDITION STABLE.
--- NOTE | 2017-04-23 07:20 | NUR ---
RECEIVED REPORT FROM INSPECTOR FABRIC NURSE, PT IS A/OX4, AMBULATORY, PT HAS IV ON THE LEFT HAND #20 AND LEFT WRIST #24,PATENT, INTACT, NO S/S OF INFILTRATION. SKIN IS INTACT, NO S/S OF ACUTE DISTRESS, PT DENIED PAIN. BED LOWERED, CALL LIGHT IS WITHIN REACH, WILL CONTINUE TO MONITOR.
[2017-04-23 07:59] VITALS: BP 116/60
[2017-04-23] MEDS ORDERED: WARF2.5T77 PO (08:50)
[2017-04-23] MEDS: PANTOPRAZOLE 40 MG INJ VIAL IVP SCH (08:56)
[2017-04-23] MEDS: FERROUS SULFATE 325 MG TABEC PO SCH (08:56)
--- NOTE | 2017-04-23 09:00 | NUR ---
PTT REVIEWED, HEPARIN REMAIN UNCHANGED PER PROTOCOL. MEDICATIONS AND INSTRUCTIONS GIVEN. PT TOLERATED WELL. NO S/S OF ACUTE DISTRESS. WILL CONTINUE TO MONITOR.
--- NOTE | 2017-04-23 10:51 | NUR ---
DISCHARGE INSTRUCTIONS AND MEDICATION TEACHING GIVEN, PT MADE AWARE OF THE FOLLOW UP APPOINTMENT. PT VERBALIZED UNDERSTANDING. IV DISCONTINUED, PT TOLERATED WELL. TELE MONITORING DEVICE REMOVED. VITAL SIGNS STABLE. NO S/S OF ACUTE DISTRESS. PT DENIED PAIN. PT LEFT IN STABLE CONDITION AND WITH ALL HER PERSONAL BELONGINGS.
== END 2017-04-23 11:00 | disposition home or self-care (01) | DRG 197 ==
LOC: MED 15:44 → MTU 18:59
PROVIDERS: ADMIT Family Medicine; ATTEND Family Medicine
DX: I82.413 Acute embolism and thrombosis of femoral vein, bilateral (principal); N17.0 Acute kidney failure with tubular necrosis; E87.8 Other disorders of electrolyte and fluid balance, not elsewhere classified; I82.433 Acute embolism and thrombosis of popliteal vein, bilateral; D50.9 Iron deficiency anemia, unspecified; Z79.01 Long term (current) use of anticoagulants; Z88.0 Allergy status to penicillin; Z91.013 Allergy to seafood; Z91.14 Patient's other noncompliance with medication regimen
CPT/HCPCS: 36415; 71010; 80048; 80053; 80305; 81003; 82140; 82150; 83036; 83690; 83735; 84100; 84436; 84439; 84443; 84479; 85025; 85610; 85730; 87081; 93971; 99285; C9113; J1644; J7030; Q0092

== ENCOUNTER 2017-05-04 10:57 | Inpatient (IN) | payer MEDICAID ==
[~2017-05-04] VITALS: Ht 154.9 cm; Wt 47.2 kg
[2017-05-04 11:04] VITALS: BP 144/78
--- NOTE | 2017-05-04 11:06 | NUR ---
Patient to bed 07.
--- NOTE | 2017-05-04 11:07 | NUR ---
PATIENT PRESENTS TO ED WITH C/O RT LOWER EXTREMITY PAIN X 2 DAYS; ADMITTED ON 04/01 FOR SAME S/SX;HX OF DVT;RX OF COUMADIN.RT LOWER EXTREMITY IS EDEMATOUS W/ REDNESS NOTED ON RT ANKLE;DENIES N/V/D; SKIN IS PINK/WARM/DRY; AAOX4; PT DENIES ANY FEVER, CP, SOB, OR COUGH AT THIS TIME; PATIENT STATES PAIN OF 6/10 AT THIS TIME;PATIENT POSITIONED FOR COMFORT; HOB ELEVATED; BEDRAILS UP X2; BED DOWN.ER MD MADE AWARE OF PT STATUS.
--- NOTE | 2017-05-04 11:15 | NUR ---
PT AMBULATED TO THE RESTROOM;
--- NOTE | 2017-05-04 11:48 | NUR ---
DR MCCARTY AT BEDSIDE.
[2017-05-04 12:49] LABS: BASOPHILS # (AUTO) 0.1 K/uL (0.00-0.22); BASOPHILS % (AUTO) 1.1 % (0.0-2.0); EOSINOPHILS # (AUTO) 0.1 K/uL (0-0.4); EOSINOPHILS % (AUTO) 1.1 % (0.0-4.0); HEMATOCRIT 33.1 % (36-48); HEMOGLOBIN 10.3 g/dL (12.0-16.0); LYMPHOCYTES # (AUTO) 1.3 K/uL (2.5-16.5); LYMPHOCYTES % (AUTO) 13.3 % (20.5-51.1); MEAN CORPUSCULAR HEMOGLOBIN 23 pg (27-31); MEAN CORPUSCULAR HGB CONC 31 g/dL (33-37); MEAN CORPUSCULAR VOLUME 73 fL (80-94); MONOCYTES # (AUTO) 0.4 K/uL (0.8-1.0); MONOCYTES % (AUTO) 3.8 % (1.7-9.3); NEUTROPHILS # (AUTO) 7.9 K/uL (1.8-7.7); NEUTROPHILS % (AUTO) 80.7 % (42.2-75.2); PLATELET COUNT (AUTO) 403 K/uL (140-450); RED BLOOD CELL COUNT(AUTO) 4.52 MIL/uL (4.20-5.40); RED CELL DISTRIBUTION WIDTH 18.2 % (11.6-13.7); WHITE BLOOD COUNT (AUTO) 9.8 K/uL (4.8-10.8)
[2017-05-04 13:01] LABS: ANION GAP 11.9 (8-16); CARBON DIOXIDE 29.6 mmol/L (21-32); POTASSIUM 4.5 mmol/L (3.5-5.1)
[2017-05-04 13:02] LABS: CREATININE 0.7 mg/dL (0.6-1.3)
[2017-05-04 13:07] LABS: PROTHROMBIN TIME 36.5 secs (10.8-13.4)
--- NOTE | 2017-05-04 13:08 | NUR ---
US AT BEDSIDE.
[2017-05-04 13:13] LABS: ALBUMIN 3.3 g/dL (3.4-5.0); TOTAL BILIRUBIN 0.4 mg/dL (0.0-1.0)
[2017-05-04] MEDS ORDERED: HEPARIN PER PHARMACY MC PRN (13:45)
[2017-05-04] MEDS ORDERED: MORPHINE SULFATE 4 MG/ML SYR IVP PRN (13:45)
[2017-05-04] MEDS ORDERED: ONDANSETRON 4 MG/2 ML VIAL IVP PRN (13:45)
[2017-05-04] MEDS ORDERED: LORazepam 2 MG/ML VIAL IVP PRN (13:45)
[2017-05-04] MEDS ORDERED: ACETAMINOPHEN 325 MG TAB PO PRN (13:45)
[2017-05-04] MEDS ORDERED: oxyCODONE/APAP 5/325 MG 1 TAB TAB PO ONE (13:50)
--- NOTE | 2017-05-04 13:59 | NUR ---
TRIED TO GIVE REPORT TO CATRACHO HARE;CATRACHO HARE ON BREAK;THEY WILL CALL BACK LATER.
--- NOTE | 2017-05-04 14:24 | NUR ---
Patient will be admitted to care of Dr Menezes. Admited to tele. Will go to room 119 B. Belongings list completed. Report to Daniel HAYDEN.
--- NOTE | 2017-05-04 14:45 | NUR ---
PATIENT ADMITTED TO THE UNIT FROM ER. PATIENT AWAKE, ALERT AND ORIENTED. NO S/S OF DISTRESS NOTED. PATIENT ON ROOM AIR. SWELLING AND REDNESS NOTED TO THE RIGHT LEG. SKIN IS INTACT. IV LINE NOTED TO THE LEFT AC SALINE LOCKED. PATIENT REPORTS OF 7/10 RIGHT LEG PAIN. PATIENT MEDICATED IN ER. WILL CONTINUE TO MONITOR. BED LOWERED WITH CALL LIGHT WITHIN REACH
[2017-05-04 14:49] VITALS: BP 121/81
[2017-05-04] MEDS ORDERED: INFLUENZA VIRUS VACCINE QUAD 0.5 ML SYR IMVAC PRN (14:55)
[2017-05-04 16:00] VITALS: BP 114/57
--- NOTE | 2017-05-04 16:00 | NUR ---
PATIENT ENDORSED TO CATRACHO PINK. PATIENT ENDORSED IN STABLE CONDITION
--- NOTE | 2017-05-04 16:05 | NUR ---
ENDORSEMENT RECEIVED FROM ANANYA. PATIENT IS STABLE AT THIS TIME. RESPIRATION EVEN, UNLABOR. SKIN DRY AND WARM TO TOUCH. DENIED PAIN AT THIS TIME. CALL LIGHT WITHIN REACH. WILL CONTINUE TO MONITOR
[2017-05-04] MEDS ORDERED: hePARIN / DEXT 5% PREMIX 250 ML IV SCH (17:00)
--- NOTE | 2017-05-04 17:58 | NUR ---
HEPARIN INFUSION STARTED PER PHARMACY ORDER. PATIENT EDUCATED TO REPORT ANY SIGN AND SYMPTOM OF BLEEDING. PATIENT VERBALIZED UNDERSTANDING. PTT TO BE CHECKED IN 6 HOURS AT MIDNIGHT. WILL ENDORSE TO STRING STUDIES DIRECTOR.
--- NOTE | 2017-05-04 18:00 | NUR ---
PATIENT IS STABLE, ALERT, AWAKE. NO DISTRESS NOTED. DENIED OF PAIN AT THIS TIME. CALL LIGHT WITHIN REACH. WILL CONTINUE TO MONITOR
--- NOTE | 2017-05-04 19:30 | NUR ---
ENDORSEMENT GIVEN TO TALENT ASSOCIATE NURSE. PATIENT IS STABLE AT THIS TIME. NO DISTRESS NOTED
--- NOTE | 2017-05-04 19:35 | NUR ---
RECEIVED PT IN STABLE CONDITION FROM AM NURSE. AWAKE, ALERT AND ORIENTED X4. MED SURG PT. WITH NO C/O ANY DISCOMFORT NOR PAIN NOTED. FAMILY MEMBERS AT BEDSIDE. HAS HEPARIN DRIP INFUSING ON THE LT AC#22. CLEAR AND PATENT. PT INSTRUCTED TO REPORT FOR ANY BLEEDING . VERBALIZED UNDERSTANDING. PLAN OF CARE DISCUSSED . CALL LIGHT PLACED WITHIN EASY REACH. WILL CONTINUE TO MONITOR.
--- NOTE | 2017-05-04 20:00 | NUR ---
ENDORSED PT IN STABLE CONDITION TO CATRACHO WARD FOR CONTINUITY OF CARE.
--- NOTE | 2017-05-04 20:01 | NUR ---
RECEIVED HANDOFF REPORT FROM TEZ HAYDEN. PATIENT A&OX4. PATIENT DENIES PAIN. NO SIGNS OF BLEEDING NOTED. PATIENT ON HEPARIN DRIP 850 UNITS/HR. RR 16 NON LABORED AND SYMMETRICAL. FAMILY AT BEDSIDE. PROVIDED HANOUT INFORMATION FOR DIAGNOSIS DVT. CALL LIGHT WITHIN REACH. WILL CONTINUE TO MONITOR.
[2017-05-04] MEDS ORDERED: NALOXONE 0.4 MG/ML VIAL ONE (20:37)
[2017-05-04] MEDS: HYDROcodone/APAP 5/325 MG 1 TAB TAB PO PRN (22:35)
[2017-05-04 22:58] VITALS: BP 98/56
--- NOTE | 2017-05-05 00:51 | NUR ---
RECEIVED REPORT FROM LAB. PTT 94.4 WILL FOLLOW HEPARIN PROTOCOL. HOLD FOR ONE HOUR AND REDUCE 150 UNITS/HR. NO SIGNS OF BLEEDING NOTED. NO SIGNS OR SYMPTOMS OF ACUTE DISTRESS NOTED. CALL LIGHT WITHIN REACH. WILL CONTINUE TO MONITOR.
--- NOTE | 2017-05-05 02:25 | NUR ---
TITRATED HEPARIN DRIP TO 700 UNITS/HR PER PROTOCOL. PATIENT RESTING IN BED. NO BLEEDING NOTED. PATIENT DENIES PAIN. NO SIGNS OR SYMPTOMS OF ACUTE DISTRESS NOTED. CALL LIGHT WITHIN REACH. WILL CONTINUE TO MONITOR.
--- NOTE | 2017-05-05 05:32 | NUR ---
PATIENT RESTING IN BED. PATIENT DENIES PAIN. NO SIGNS OR SYMPTOMS OF ACUTE DISTRESS NOTED. NO SIGNS OR SYMPTOMS OF BLEEDING. WILL CONTINUE TO MONITOR.
--- NOTE | 2017-05-05 07:36 | NUR ---
ENDORSED PLAN OF CARE TO AM RN. PATIENT IN STABLE CONDITION. NO SIGNS OR SYMPTOMS OF ACUTE DISTRESS NOTED.
--- NOTE | 2017-05-05 07:37 | NUR ---
PATIENT SITTING IN BED. IN STABLE CONDITION, NO DISTRESS NOTED. PAIN ON RLE WITHIN TOLERABLE AT THIS TIME. RESPIRATIONS EVEN, UNLABORED, ON ROOM AIR. AAOX4, CALM, COOPERATIVE, WELL-GROOMED, SKIN COLOR APPROPRIATE TO ETHNICITY, WARM TO TOUCH. ABLE TO AMBULATE, BUT ORDERS ARE TO BEDREST DUE TO DVT. REINFORCED PATIENT TEACHING ON BEDREST ACTIVITY AND TO PRESS CALL LIGHT IF NURSE IS NEEDED. IV IS INTACT, PATENT, AND INFUSING HEPARIN DRIP PER PROTOCOL. SKIN IS INTACT. RLE EDEMA NOTED. RIGHT LE LUNGS ARE CTA ON ALL LOBES. PLAN OF CARE REVIEWED WITH PATIENT. PATIENT VERBALIZED UNDERSTANDING. SAFETY MEASURES IN PLACE, CALL LIGHT WITHIN REACH. WILL CONTINUE TO MONITOR.
[2017-05-05 08:00] VITALS: BP 107/69
--- NOTE | 2017-05-05 08:30 | NUR ---
DR. BRUNO AT BEDSIDE WITH PATIENT. NEW VERBAL ORDERS INPUTTED AND VERIFIED BY DR. BRUNO: XARELTO 15 MG PO BID, D/C HEPARIN DRIP ONCE FIRST DOSE OF XARELTO GIVEN. SAFETY MEASURE IN PLACE, CALL LIGHT WITHIN REACH. WILL CONTINUE TO MONITOR.
--- NOTE | 2017-05-05 08:55 | NUR ---
PATIENT HAS BEEN SCREENED AND CATEGORIZED LOW NUTRITION RISK. PATIENT WILL BE SEEN WITHIN 7 DAYS OF ADMISSION. 05/11/[address]
[2017-05-05] MEDS: RIVAROXABAN 15 MG TAB PO SCH ×2 (09:12→21:00)
[2017-05-05] MEDS: HYDROcodone/APAP 5/325 MG 1 TAB TAB PO PRN ×2 (09:14→20:44)
--- NOTE | 2017-05-05 09:21 | NUR ---
PATIENT SITTING IN BED WITH COMPLAINTS OF RLE PAIN. MEDICATED WITH NORCO PER ORDERS. XARELTO MEDICATION GIVEN PO AND HEPARIN DRIP DISCONTINUED PER DR. BRUNO ORDERS ONCE FIRST DOSE OF XARELTO GIVEN. SAFETY MEASURES IN PLACE, CALL LIGHT WITHIN REACH. WILL CONTINUE TO MONITOR.
[2017-05-05 10:14] LABS: BASOPHILS # (AUTO) 0.2 K/uL (0.00-0.22); BASOPHILS % (AUTO) 2.1 % (0.0-2.0); EOSINOPHILS # (AUTO) 0.1 K/uL (0-0.4); EOSINOPHILS % (AUTO) 0.8 % (0.0-4.0); HEMATOCRIT 36.7 % (36-48); HEMOGLOBIN 11.3 g/dL (12.0-16.0); LYMPHOCYTES # (AUTO) 1.4 K/uL (2.5-16.5); MEAN CORPUSCULAR HEMOGLOBIN 23 pg (27-31); MEAN CORPUSCULAR HGB CONC 31 g/dL (33-37); MEAN CORPUSCULAR VOLUME 74 fL (80-94); MONOCYTES # (AUTO) 0.5 K/uL (0.8-1.0); MONOCYTES % (AUTO) 6.8 % (1.7-9.3); NEUTROPHILS # (AUTO) 5.9 K/uL (1.8-7.7); NEUTROPHILS % (AUTO) 73.3 % (42.2-75.2); PLATELET COUNT (AUTO) 345 K/uL (140-450); RED BLOOD CELL COUNT(AUTO) 4.99 MIL/uL (4.20-5.40); RED CELL DISTRIBUTION WIDTH 18.7 % (11.6-13.7); WHITE BLOOD COUNT (AUTO) 8.1 K/uL (4.8-10.8)
[2017-05-05 10:28] LABS: ANION GAP 14.4 (8-16); CARBON DIOXIDE 28.5 mmol/L (21-32); CREATININE 0.6 mg/dL (0.6-1.3); POTASSIUM 3.9 mmol/L (3.5-5.1)
[2017-05-05 10:59] LABS: PROTHROMBIN TIME 49.7 secs (10.8-13.4)
--- NOTE | 2017-05-05 11:45 | NUR ---
PATIENT SITTING IN BED WITH FAMILY MEMBER AT BEDSIDE. NO DISTRESS NOTED. RLE PAIN WITHIN TOLERABLE AT THIS TIME. NO S/S OF BLEEDING NOTED. SAFETY MEASURES IN PLACE, CALL LIGHT WITHIN REACH. WILL CONTINUE TO MONITOR.
--- NOTE | 2017-05-05 14:00 | NUR ---
PATIENT SITTING IN BED WITH FAMILY MEMBER AT BEDSIDE. NO DISTRESS NOTED. RLE PAIN WITHIN TOLERABLE AT THIS TIME. REFUSES PAIN MEDICATION AT THIS TIME. NO S/S OF BLEEDING NOTED. SAFETY MEASURES IN PLACE, CALL LIGHT WITHIN REACH. WILL CONTINUE TO MONITOR.
--- NOTE | 2017-05-05 16:00 | NUR ---
PATIENT LYING IN BED TALKING WITH FAMILY MEMBERS AT BEDSIDE. NO DISTRESS NOTED. RESPIRATIONS EVEN, UNLABORED, ON ROOM AIR. RLE PAIN WITHIN TOLERABLE AT THIS TIME. REFUSES PAIN MEDS AT THIS TIME. NO S/S OF BLEEDING NOTED. SAFETY MEASURES IN PLACE, CALL LIGHT WITHIN REACH. WILL CONTINUE TO MONITOR.
--- NOTE | 2017-05-05 18:20 | NUR ---
PATIENT SITTING IN BED TALKING WITH FAMILY MEMBERS AT BEDSIDE. NO DISTRESS NOTED. NO S/S OF BLEEDING NOTED. CONDITION UNCHANGED. SAFETY MEASURES IN PLACE, CALL LIGHT WITHIN REACH. WILL CONTINUE TO MONITOR.
--- NOTE | 2017-05-05 19:30 | NUR ---
GAVE REPORT TO ELECTRON TUBE ASSEMBLER NURSE FOR CONTINUITY OF CARE. PATIENT IN STABLE CONDITION.
[2017-05-05 20:00] VITALS: BP 113/67
--- NOTE | 2017-05-05 20:01 | NUR ---
RECEIVED REPORT FROM AM NURSE. PT IS AAOX4. ON ROOM AIR. FAMILY AT BEDSIDE. RESPIRATIONS EVEN AND UNLABORED. IV ACCESS IS INTACT, PATENT AND ASYMPTOMATIC. AMBULATORY WITH BP. BOWEL SOUNDS ACTIVE ON ALL FOUR QUADRANTS, NO SIGNS OF ACUTE DISTRESS NOTED. SKIN COLOR APPROPRIATE TO ETHNICITY, SKIN TEMP WARM TO TOUCH. PLAN OF CARE DISCUSSED, PT VERBALIZED UNDERSTANDING. BED IN LOW POSITION, BILATERAL HALF SIDE RAILS UP, CALL LIGHT WITHIN REACH, WILL CONTINUE TO MONITOR.
--- NOTE | 2017-05-05 21:09 | NUR ---
PAGED DR HALL. PT MEDICATION XARELTO DUE AT 2100 IS NOT AVAILABLE. INFORMED CHARGE NURSE ARACELY, AND RETAIL FIELD SUPERVISOR SVETA, BOTH WERE UNABLE TO OVERRIDE MEDICATION. WILL AWAIT CALLBACK.
--- NOTE | 2017-05-05 21:29 | NUR ---
DR HALL CALLED BACK, NOTIFIED HIM THAT THE MEDICATION XARELTO DUE AT 2100 IS UNAVAILABLE. COULD NOT OVERRIDE MEDICATION AT THIS TIME AND CAN ONLY BE GIVEN TOMORROW MORNING BUT NOT TONIGHT. DR HALL SAID IT WAS FINE NOT TO GIVE IT AT 2100, AND TO GIVE IT TOMORROW MORNING.
--- NOTE | 2017-05-05 22:50 | NUR ---
MEDICATION XARELTO GIVEN TO PATIENT. PT TOLERATED WELL, WILL CONTINUE TO MONITOR.
[2017-05-06] VITALS (11 sets, daily range): BP systolic 91–141; BP diastolic 55–70
--- NOTE | 2017-05-06 02:57 | NUR ---
PT IS SLEEPING, EASY TO AROUSE, NO SIGNS OF ACUTE DISTRESS. BED IN LOW POSITION, BILATERAL HALF SIDE RAILS UP, CALL LIGHT WITHIN REACH, WILL CONTINUE TO MONITOR.
--- NOTE | 2017-05-06 06:01 | NUR ---
PT IS SLEEPING, EASY TO AROUSE. NO SIGNS OF ACUTE DISTRESS NOTED. BED IN LOW POSITION, BILATERAL HALF SIDE RAILS UP, CALL LIGHT WITHIN REACH, WILL CONTINUE TO MONITOR.
[2017-05-06 06:07] LABS: BASOPHILS # (AUTO) 0.1 K/uL (0.00-0.22); BASOPHILS % (AUTO) 1.4 % (0.0-2.0); EOSINOPHILS # (AUTO) 0.1 K/uL (0-0.4); EOSINOPHILS % (AUTO) 1.7 % (0.0-4.0); HEMATOCRIT 30.9 % (36-48); HEMOGLOBIN 9.7 g/dL (12.0-16.0); LYMPHOCYTES # (AUTO) 1.7 K/uL (2.5-16.5); LYMPHOCYTES % (AUTO) 20.6 % (20.5-51.1); MEAN CORPUSCULAR HEMOGLOBIN 23 pg (27-31); MEAN CORPUSCULAR HGB CONC 32 g/dL (33-37); MEAN CORPUSCULAR VOLUME 74 fL (80-94); MONOCYTES # (AUTO) 0.7 K/uL (0.8-1.0); NEUTROPHILS # (AUTO) 5.6 K/uL (1.8-7.7); NEUTROPHILS % (AUTO) 68.3 % (42.2-75.2); PLATELET COUNT (AUTO) 375 K/uL (140-450); RED BLOOD CELL COUNT(AUTO) 4.17 MIL/uL (4.20-5.40); RED CELL DISTRIBUTION WIDTH 17.8 % (11.6-13.7); WHITE BLOOD COUNT (AUTO) 8.2 K/uL (4.8-10.8)
[2017-05-06 06:33] LABS: ANION GAP 9.2 (8-16); CARBON DIOXIDE 29.9 mmol/L (21-32); CREATININE 0.6 mg/dL (0.6-1.3); POTASSIUM 4.1 mmol/L (3.5-5.1)
[2017-05-06 06:41] LABS: PROTHROMBIN TIME 81.9 secs (10.8-13.4)
--- NOTE | 2017-05-06 06:45 | NUR ---
PAGED DR HALL, TO NOTIFY HIM OF CRITICAL LAB VALUES RECEIVED FROM LABORATORY. PT 81.9, INR 8.2. WILL WAIT FOR CALL BACK
--- NOTE | 2017-05-06 07:10 | NUR ---
DR HALL CALLED BACK, NOTIFIED DR OF CRITICAL LAB VALUES, PT 81.9, INR 8.2. DR HALL ORDERED TO HOLD XARELTO, ADMINISTER VIT. K 10 MG IVP TIMES ONCE, FRESH FROZEN PLASMA TIMES ONCE. NOTED, WILL CARRY OUT.
--- NOTE | 2017-05-06 07:25 | NUR ---
ENDORSED PT TO AM NURSE FOR CONTINUITY OF CARE. PT IN STABLE CONDITION.
--- NOTE | 2017-05-06 07:26 | NUR ---
PATIENT LYING IN BED WITH BREAKFAST TRAY IN FRONT. IN STABLE CONDITION. NO DISTRESS NOTED. RESPIRATIONS EVEN, UNLABORED, ON ROOM AIR. C/O RLE EXTREMITY PAIN, WILL MEDICATE ORDERS. RLE EDEMA NOTED. SKIN IS INTACT. IV IS INTACT, PATENT, ON SALINE LOCK. LUNGS CTA ON ALL LOBES. ABDOMEN SOFT, NON-DISTENDED. PLAN OF CARE REVIEWED WITH PATIENT. PATIENT VERBALIZED UNDERSTANDING. SAFETY MEASURES IN PLACE, CALL LIGHT WITHIN REACH. WILL CONTINUE TO MONITOR.
[2017-05-06] MEDS ORDERED: PHYTONADIONE 10 MG/ML AMP IM ONE (07:35)
[2017-05-06] MEDS: RIVAROXABAN 15 MG TAB PO SCH ×2 (09:00→21:00)
--- NOTE | 2017-05-06 09:15 | NUR ---
Mariella PAZ, AT BEDSIDE REVIEWING PLAN OF CARE WITH PATIENT. WILL CONTINUE TO MONITOR.
[2017-05-06] MEDS: HYDROcodone/APAP 5/325 MG 1 TAB TAB PO PRN ×2 (09:28→23:26)
[2017-05-06] MEDS ORDERED: PHYTONADIONE 10 MG in NACL 0.9% 50 ML IV SCH (09:30)
--- NOTE | 2017-05-06 09:30 | NUR ---
PATIENT SITTING IN BED TALKING WITH AT BEDSIDE. NO DISTRESS NOTED. RESPIRATIONS EVEN, UNLABORED, ON ROOM AIR. C/O OF RLE PAIN, MEDICATED WITH NORCO ORDERS. VITAMIN K VIA IVPB GIVEN PER MD ORDERS. XARALTO PO MEDICATION WITHHELD PER DR. HALL ORDERS DUE TO HIGH PT AND INR LAB RESULTS. MADE PATIENT AWARE OF FRESH FROZEN PLASMA 1 UNIT TO BE GIVEN LATER ONCE AVAILABLE PER DR. HALL ORDERS TO HELP THICKEN HER BLOOD. ANSWERED ALL QUESTIONS FROM PATIENT/ REGARDING PLASMA ADMINISTRATION AND OBTAINED PATIENT'S CONSENT IN [place]. SAFETY MEASURES IN PLACE, CALL LIGHT WITHIN REACH. WILL CONTINUE TO MONITOR.
--- NOTE | 2017-05-06 11:30 | NUR ---
PATIENT LYING IN BED WATCHING TV. NO DISTRESS NOTED. DENIES ANY PAIN AT THIS TIME. PREPARED FOR FOR PLASMA INFUSION VIA IV. WILL CONTINUE TO MONITOR.
--- NOTE | 2017-05-06 12:05 | NUR ---
PATIENT SITTING IN BED WATCHING TV. NO DISTRESS NOTED. RESPIRATIONS EVEN, UNLABORED ON ROOM AIR. DENIES ANY PAIN AT THIS TIME. PLASMA INFUSION STARTED AT THIS TIME. PRE-VITAL SIGNS TAKEN PER PROTOCOL AND WILL CONTINUE TO MONITOR V/S AND FOR ANY ADVERSE REACTIONS PER PROTOCOL. SAFETY MEASURES IN PLACE. WILL CONTINUE TO MONITOR.
--- NOTE | 2017-05-06 15:00 | NUR ---
PATIENT SITTING IN BED TALKING WITH FAMILY ON PHONE. FRESH FROZEN PLASMA INFUSION COMPLETED. PATIENT TOLERATED WELL WITHOUT ANY REACTIONS. SAFETY MEASURES IN PLACE, CALL LIGHT WITHIN REACH. WILL CONTINUE TO MONITOR.
--- NOTE | 2017-05-06 16:44 | NUR ---
PATIENT LYING IN BED SLEEPING. AROUSABLE BY VOICE. NO DISTRESS NOTED. RESPIRATIONS EVEN, UNLABORED, ON ROOM AIR. SAFETY MEASURES IN PLACE, CALL LIGHT WITHIN REACH. WILL CONTINUE TO MONITOR.
[2017-05-06 18:45] LABS: PROTHROMBIN TIME 13.7 secs (10.8-13.4)
--- NOTE | 2017-05-06 18:45 | NUR ---
PATIENT SITTING IN BED TALKING ON THE PHONE WITH FAMILY MEMBER. NO DISTRESS NOTED. CONDITION UNCHANGED. SAFETY MEASURES IN PLACE, CALL LIGHT WITHIN REACH. WILL CONTINUE TO MONITOR.
--- NOTE | 2017-05-06 19:15 | NUR ---
ENDORSED PATIENT TO DITCHING MACHINE ENGINEER NURSE FOR CONTINUITY OF CARE. PATIENT IN STABLE CONDITION.
--- NOTE | 2017-05-06 19:17 | NUR ---
RECEIVED REPORT FROM AM NURSE. PT IS AAOX4, SITTING UP IN THE CHAIR. NO SIGNS OF ACUTE DISTRESS. ON ROOM AIR. AMBULATORY WITHOUT ASSIST. SKIN COLOR APPROPRIATE TO ETHNICITY, SKIN TEMP WARM TO TOUCH. RESPIRATIONS EVEN AND UNLABORED. IV ACCESS INTACT, PATENT AND ASYMPTOMATIC, SL. PLAN OF CARE DISCUSSED, PT VERBALIZED UNDERSTANDING. BED IN LOW POSITION, BILATERAL HALF SIDE RAILS UP, CALL LIGHT WITHIN REACH, WILL CONTINUE TO MONITOR.
--- NOTE | 2017-05-06 23:16 | NUR ---
PT IS SLEEPING, AROUSABLE TO VOICE. NO SIGNS OF ACUTE DISTRESS NOTED. RESPIRATIONS EVEN AND UNLABORED. BED IN LOW POSITION, BILATERAL HALF SIDE RAILS UP, CALL LIGHT WITHIN REACH, WILL CONTINUE TO MONITOR.
[2017-05-07] VITALS: BP 109/65
--- NOTE | 2017-05-07 03:27 | NUR ---
PT IS SLEEPING, AROUSABLE TO VOICE. RESPIRATIONS EVEN AND UNLABORED. NO SIGN OF ACUTE DISTRESS NOTED. BED IN LOW POSITION, BILATERAL HALF SIDE RAILS UP, CALL LIGHT WITHIN REACH, WILL CONTINUE TO MONITOR.
[2017-05-07 06:06] LABS: BASOPHILS # (AUTO) 0.1 K/uL (0.00-0.22); BASOPHILS % (AUTO) 1.7 % (0.0-2.0); EOSINOPHILS # (AUTO) 0.1 K/uL (0-0.4); EOSINOPHILS % (AUTO) 1.8 % (0.0-4.0); HEMATOCRIT 29.6 % (36-48); HEMOGLOBIN 9.1 g/dL (12.0-16.0); LYMPHOCYTES # (AUTO) 1.6 K/uL (2.5-16.5); LYMPHOCYTES % (AUTO) 22.9 % (20.5-51.1); MEAN CORPUSCULAR HEMOGLOBIN 23 pg (27-31); MEAN CORPUSCULAR HGB CONC 31 g/dL (33-37); MEAN CORPUSCULAR VOLUME 73 fL (80-94); MONOCYTES # (AUTO) 0.5 K/uL (0.8-1.0); MONOCYTES % (AUTO) 7.3 % (1.7-9.3); NEUTROPHILS # (AUTO) 4.9 K/uL (1.8-7.7); NEUTROPHILS % (AUTO) 66.3 % (42.2-75.2); PLATELET COUNT (AUTO) 375 K/uL (140-450); RED BLOOD CELL COUNT(AUTO) 4.03 MIL/uL (4.20-5.40); RED CELL DISTRIBUTION WIDTH 17.9 % (11.6-13.7); WHITE BLOOD COUNT (AUTO) 7.2 K/uL (4.8-10.8)
[2017-05-07 06:32] LABS: PROTHROMBIN TIME 11.7 secs (10.8-13.4)
[2017-05-07 06:56] LABS: ANION GAP 9.9 (8-16); CARBON DIOXIDE 29.2 mmol/L (21-32); CREATININE 0.5 mg/dL (0.6-1.3); POTASSIUM 4.1 mmol/L (3.5-5.1)
--- NOTE | 2017-05-07 07:28 | NUR ---
ENDORSED PT TO AM NURSE FOR CONTINUITY OF CARE. PT IS IN STABLE CONDITION.
--- NOTE | 2017-05-07 07:29 | NUR ---
REPORT RECEIVED FROM MOBILE HOME LOT UTILITY WORKER, PT AWAKE ALERT, RESP EVEN UNLABORED ON ROOM AIR, SKIN WARM DRY COLOR WNL, INITIAL ASSESSMENT DONE, RIGHT LOWER EXT WITH ERYTHEMA TO UPPER CALF, 1+ EDEMA TO ANKLE AND FOOT, GOOD CMS DISTALLY, PT DENIES PAIN OR DISCOMFORT, PLAN OF CARE DISCUSSED, PT VERBALIZED FULL UNDERSTANDING, PT VOICES NO IMMEDIATE NEEDS, SAFETY MEASURES IN PLACE, CALL CHARLES WITHIN REACH, SIDE RAILS UP X2, BED LOCKED IN LOW POSITION, WILL CONTINUE TO MONITOR.
[2017-05-07 08:00] VITALS: BP 115/62
[2017-05-07] MEDS: RIVAROXABAN 15 MG TAB PO SCH (09:00)
[2017-05-07] MEDS: HYDROcodone/APAP 5/325 MG 1 TAB TAB PO PRN (10:10)
--- NOTE | 2017-05-07 10:10 | NUR ---
PT SITTING IN BED QUIETLY IN NAD, RESP EVEN UNLABORED, C/O PAIN IN RIGHT LEG, 12/30, RIGHT LEG APPEARS UNCHANGED FROM SHIFT ASSESSMENT, NORCO GIVEN PER ODER, WILL CONTINUE TO MONITOR.
--- NOTE | 2017-05-07 12:08 | NUR ---
PT SITTING UP EATING LUNCH, STATES PAIN IS MUCH BETTER AFTER NORCO, PT DENIES ANY IMMEDIATE NEEDS, WILL CONTINUE TO MONITOR.
--- NOTE | 2017-05-07 15:55 | NUR ---
PT SLEEPING QUIETLY IN NAD, RESP EVEN UNLABORED, SKIN WARM DRY COLOR WNL, PT AROUSES EASILY BY VOICE, VS DOCUMENTED, DENIES ANY IMMEDIATE NEEDS, CALL CHARLES AT BEDSIDE, WILL CONTINUE TO MONITOR.
--- NOTE | 2017-05-07 17:53 | NUR ---
PT SITTING UP EATING DINNER, FAMILY AT BEDSIDE, PT TALKING WITH SMILES, DENIES PAIN OR DISCOMFORT AT THIS TIME, PT DENIES ANY OTHER IMMEDIATE NEEDS, CALL CHARLES WITHIN REACH, SIDE RAILS UP, WILL CONTINUE TO MONITOR,.
[2017-05-07] MEDS ORDERED: RIVA15TA1 PO (18:23)
[2017-05-07] MEDS ORDERED: TRAM50TA1 PO (18:23)
[2017-05-07] MEDS ORDERED: ACET-1182 PO (18:23)
--- NOTE | 2017-05-07 18:45 | NUR ---
DC INSTRUCTION AND RX FOR XARELTO, ACETAMINOPHEN AND TRAMADOL GIVEN AND EXPLAINED TO PT AND FAMILY, PT AND FAMILY VERBALIZED FULL UNDERSTANDING, IV DC'D, CATH TIP INTACT, BLEEDING CONTROLLED.
--- NOTE | 2017-05-07 19:15 | NUR ---
DC HOME NOW WITH FAMILY, ESCORTED OUT IN WHEELCHAIR.
== END 2017-05-07 19:15 | disposition home or self-care (01) | DRG 197 ==
LOC: MED 10:57 → MTU 13:45
PROVIDERS: ADMIT Preventive Medicine Preventive Medicine/Occupational Environmental Medicine; ATTEND Preventive Medicine Preventive Medicine/Occupational Environmental Medicine
PROC: 30233L1 Transfusion of Nonautologous Fresh Plasma into Peripheral Vein, Percutaneous Approach (ICD-10-PCS; principal; 2017-05-06)
PROC: 30233K1 Transfusion of Nonautologous Frozen Plasma into Peripheral Vein, Percutaneous Approach (ICD-10-PCS; 2017-05-06)
DX: I82.411 Acute embolism and thrombosis of right femoral vein (principal); E44.0 Moderate protein-calorie malnutrition; E88.09 Other disorders of plasma-protein metabolism, not elsewhere classified; D64.9 Anemia, unspecified; I82.441 Acute embolism and thrombosis of right tibial vein; R00.0 Tachycardia, unspecified; R79.1 Abnormal coagulation profile; Z88.0 Allergy status to penicillin; Z91.013 Allergy to seafood; Z79.01 Long term (current) use of anticoagulants; Z86.718 Personal history of other venous thrombosis and embolism; Z68.1 Body mass index [BMI] 19.9 or less, adult
CPT/HCPCS: 36415; 80048; 80053; 85025; 85610; 85730; 86886; 86900; 86901; 87081; 90658; 93971; 99285; J1644; J2310; J3430; J7030; P9017; Q0092

== ENCOUNTER 2018-09-12 17:48 | Emergency (ER) | payer MEDICAID ==
[~2018-09-12] VITALS: Ht 157.5 cm; Wt 52.2 kg
[~2018-09-12 17:48] MED LIST changes: +ACET-1182 PO; +RIVA15TA1 PO; +TRAM50TA1 PO; -WARF2.5T77 PO
[2018-09-12 17:54] VITALS: BP 139/83
--- NOTE | 2018-09-12 17:59 | NUR ---
PT AMBULATED TO BED 6 AT THIS TIME
--- NOTE | 2018-09-12 18:02 | NUR ---
38 Y F BIB SELF C/O ITCHING OVER ENTIRE BODY AND TINGLING IN THROAT SINCE EATING SHRIMP 30 MIN GOLF BALL WINDER. ALLERGIC TO SHELLFISH. DENIES DIFFICULTY BREATHING. TOOK ONE PILL FOR ALLERGIES UNKNOWN NAME APPROX 20 MIN GOLF BALL WINDER. 100% ON RA. NO HIVES PRESENT. +CHILLS. PT ON MONITOR. BED IS DOWN, LOCKED, BED RAIL X 1, ERMD NOTIFIED. PMH- NONE
--- NOTE | 2018-09-12 18:11 | NUR ---
DR MILAN AT BEDSIDE
[2018-09-12] MEDS ORDERED: diphenhydrAMINE 50 MG/ML VIAL IVP ONE (18:15)
[2018-09-12] MEDS ORDERED: EPINEPHrine 1:1000 - 1 MG/ML AMP SUBQ ONE (18:15)
[2018-09-12] MEDS ORDERED: methylPREDNISolone SS 125 MG in WATER STERILE 2 ML IV ONE (18:15)
--- NOTE | 2018-09-12 19:14 | NUR ---
Pt report given to brenda meek. Transfer of care at this time.
[2018-09-12 19:24] VITALS: BP 119/76
--- NOTE | 2018-09-12 19:25 | NUR ---
DISCHARGED BY DR MILAN. PRESCRIPTION OF BENADRYL ALLERGY GIVEN. IV REMOVED, SITE CLEAN CATH INTACT.
== END 2018-09-12 19:25 | disposition home or self-care (01) ==
LOC: MED 17:48
DX: T78.1XXA Other adverse food reactions, not elsewhere classified, initial encounter (principal); Z88.0 Allergy status to penicillin; Z79.899 Other long term (current) drug therapy; X58.XXXA Exposure to other specified factors, initial encounter
CPT/HCPCS: 96372; 96374; 96375; 99283; J0171; J1200; J2930

== ENCOUNTER 2019-03-18 14:33 | Inpatient (IN) | payer MEDICAID ==
[~2019-03-18] VITALS: Ht 154.9 cm; Wt 49.6 kg
[2019-03-18 14:45] VITALS: BP 128/76
[2019-03-18 17:08] LABS: BASOPHILS # (AUTO) 0.1 K/uL (0.00-0.22); BASOPHILS % (AUTO) 0.7 % (0.0-2.0); EOSINOPHILS % (AUTO) 0.4 % (0.0-4.0); HEMATOCRIT 33.9 % (36-48); HEMOGLOBIN 10.2 g/dL (12.0-16.0); LYMPHOCYTES # (AUTO) 1.4 K/uL (2.5-16.5); LYMPHOCYTES % (AUTO) 17.6 % (20.5-51.1); MEAN CORPUSCULAR HEMOGLOBIN 21 pg (27-31); MEAN CORPUSCULAR HGB CONC 30 g/dL (33-37); MONOCYTES # (AUTO) 0.4 K/uL (0.8-1.0); MONOCYTES % (AUTO) 4.8 % (1.7-9.3); NEUTROPHILS % (AUTO) 76.5 % (42.2-75.2); PLATELET COUNT (AUTO) 398 K/uL (140-450); RED BLOOD CELL COUNT(AUTO) 4.99 MIL/uL (4.20-5.40); RED CELL DISTRIBUTION WIDTH 19.2 % (11.6-13.7); WHITE BLOOD COUNT (AUTO) 7.8 K/uL (4.8-10.8)
[2019-03-18 17:17] LABS: PROTHROMBIN TIME 10.6 secs (10.8-13.4)
[2019-03-18 17:22] LABS: ANION GAP 12.2 (8-16); CARBON DIOXIDE 28.6 mmol/L (21-32); CREATININE 0.5 mg/dL (0.6-1.3); POTASSIUM 3.8 mmol/L (3.5-5.1)
[2019-03-18 17:23] LABS: ALBUMIN 4.2 g/dL (3.4-5.0); TOTAL BILIRUBIN 0.4 mg/dL (0.0-1.0)
[2019-03-18 18:28] LABS: APPEARANCE,URINE CLEAR (CLEAR); BILIRUBIN,URINE NEGATIVE (NEGATIVE); BLOOD, URINE NEGATIVE (NEGATIVE); COLOR,URINE OTHER (YELLOW); LEUKOCYTE ESTERASE ,URINE NEGATIVE (NEGATIVE); NITRITE, URINE NEGATIVE (NEGATIVE); UGLUCOSE NEGATIVE (NEGATIVE)
[2019-03-18] MEDS ORDERED: ACETAMINOPHEN 325 MG TAB PO PRN (18:50)
[2019-03-18] MEDS ORDERED: ONDANSETRON 4 MG/2 ML VIAL IVP PRN (18:50)
[2019-03-18] MEDS ORDERED: HYDROcodone/APAP 7.5/325 MG 1 TAB PO PRN (18:50)
[2019-03-18] MEDS ORDERED: cefTRIAXone 1,000 MG VIAL ONE (19:15)
[2019-03-18 19:38] LABS: BARBITURATE, URINE NEG. ng/ml (NEG <=200); BENZODIAZEPINE, URINE NEG. ng/mL (NEG <=200); CANNABINOID, URINE NEG. ng/mL (NEG <=50); COCAINE, URINE NEG. ng/mL (NEG <=300); OPIATE, URINE NEG. ng/mL (NEG <=2000); PHENCYCLIDINE SCREEN,URINE NEG. ng/mL (NEG <=25)
[2019-03-18] MEDS ORDERED: RIVA15TA1 PO (19:43)
[2019-03-18 19:45] LABS: FREE T4 (FREE THYROXINE) 0.89 ng/dL (0.76-1.46); MAGNESIUM 2.2 mg/dL (1.8-2.4); PHOSPHORUS 2.6 mg/dL (2.5-4.9); THYROID STIMULATING HORMONE 2.34 uIU/mL (0.34-3.74)
[2019-03-18 20:30] VITALS: BP 120/82
[2019-03-18] MEDS ORDERED: RIVAROXABAN 10 MG TAB PO SCH (21:50)
[2019-03-18] MEDS: DOCUSATE SODIUM 100 MG GELCAP PO SCH (22:29)
[2019-03-18 23:21] VITALS: BP 124/72
[2019-03-18] MEDS ORDERED: diphenhydrAMINE 50 MG/ML VIAL ONE (23:57)
[2019-03-19] MEDS ORDERED: diphenhydrAMINE 50 MG/ML VIAL IVP SCH
[2019-03-19] MEDS ORDERED: SODIUM FERRIC GLUCONATE 125 MG in NACL 0.9% 100 ML IV SCH (00:10)
[2019-03-19 04:00] VITALS: BP 120/85
[2019-03-19 08:00] VITALS: BP 95/46
[2019-03-19] MEDS ORDERED: FERROUS SULFATE 325 MG TABEC PO SCH (08:00)
[2019-03-19] MEDS ORDERED: predniSONE 5 MG TAB PO SCH ×2 (08:00)
[2019-03-19 08:07] LABS: BASOPHILS % (AUTO) 0.4 % (0.0-2.0); EOSINOPHILS # (AUTO) 0.1 K/uL (0-0.4); EOSINOPHILS % (AUTO) 2.2 % (0.0-4.0); HEMATOCRIT 30.2 % (36-48); HEMOGLOBIN 9.1 g/dL (12.0-16.0); LYMPHOCYTES # (AUTO) 1.4 K/uL (2.5-16.5); MEAN CORPUSCULAR HEMOGLOBIN 21 pg (27-31); MEAN CORPUSCULAR HGB CONC 30 g/dL (33-37); MEAN CORPUSCULAR VOLUME 68.1 fL (80-94); MONOCYTES # (AUTO) 0.6 K/uL (0.8-1.0); NEUTROPHILS # (AUTO) 3.8 K/uL (1.8-7.7); NEUTROPHILS % (AUTO) 63.4 % (42.2-75.2); PLATELET COUNT (AUTO) 349 K/uL (140-450); RED BLOOD CELL COUNT(AUTO) 4.44 MIL/uL (4.20-5.40); WHITE BLOOD COUNT (AUTO) 5.9 K/uL (4.8-10.8)
[2019-03-19] MEDS: DOCUSATE SODIUM 100 MG GELCAP PO SCH (08:58)
[2019-03-19] MEDS ORDERED: RIVAROXABAN 10 MG TAB PO SCH (09:00)
[2019-03-19 09:29] LABS: MAGNESIUM 2.2 mg/dL (1.8-2.4); PHOSPHORUS 3.8 mg/dL (2.5-4.9)
[2019-03-19 09:31] LABS: CHOL/HDL RATIO 2.7 (1-4.5)
[2019-03-19 11:24] LABS: ANION GAP 14.1 (8-16); CARBON DIOXIDE 26.7 mmol/L (21-32); CREATININE 0.6 mg/dL (0.6-1.3); POTASSIUM 3.8 mmol/L (3.5-5.1)
[2019-03-20 15:12] LABS: FOLIC ACID 14.4 ng/mL (>3.0)
[2019-03-21 07:15] LABS: CHLAMYDIA TRACHOMATIS AMP DNA Negative (Negative)
[2019-03-23 09:07] LABS: ANTI-NUCLEAR ANTIBODY TITER Negative (.)
== END 2019-03-19 16:50 | disposition home or self-care (01) | DRG 203 ==
LOC: MED 14:33 → MTU 18:48
PROVIDERS: ADMIT General Practice; ATTEND General Practice
DX: M94.0 Chondrocostal junction syndrome [Tietze] (principal); L03.115 Cellulitis of right lower limb; D50.9 Iron deficiency anemia, unspecified; L03.116 Cellulitis of left lower limb; G44.209 Tension-type headache, unspecified, not intractable; Z86.718 Personal history of other venous thrombosis and embolism; Z88.0 Allergy status to penicillin; Z91.013 Allergy to seafood; Z79.899 Other long term (current) drug therapy; Z91.14 Patient's other noncompliance with medication regimen; Z91.041 Radiographic dye allergy status
CPT/HCPCS: 36415; 70450; 71045; 76881; 78582; 80048; 80053; 80305; 81003; 82150; 82607; 82728; 82746; 83036; 83540; 83690; 83735; 83880; 84100; 84439; 84443; 84484; 85025; 85045; 85610; 85730; 86038; 87040; 87081; 87491; 93005; 93970; 96365; 99285; A9540; J0696; J1200; J2916; J7060; J7512; Q0092

== ENCOUNTER 2020-11-03 20:05 | Emergency (ER) | payer MEDICAID ==
[~2020-11-03] VITALS: Ht 170.2 cm; Wt 49.9 kg
[~2020-11-03 20:05] MED LIST changes: -ACET-1182 PO; -TRAM50TA1 PO
[2020-11-03 20:15] VITALS: BP 136/85
--- NOTE | 2020-11-03 20:40 | NUR ---
RECIEVED IN BED 4 WITH LEFT ABDOMINAL PAIN X3 WEEKS, INCREASED PAIN OVER THE LAST 3 DAYS. PT. STATES SHES BEEN VOMITING, DIZZY, AND FATIGUED. PT. APPEARS TO BE CALM AND COOPERATIVE. NAD, NO CHEST PAIN. PMH: BLOOD CLOTS IN LOWER EXTERMITIES ALLERGIES: PENICILLIN, SHRIMP
[2020-11-03] MEDS ORDERED: KETOROLAC 15 MG/ML VIAL IM ONE (20:50)
[2020-11-03 21:13] LABS: BASOPHILS % (AUTO) 0.6 % (0.0-2.0); EOSINOPHILS # (AUTO) 0.2 K/uL (0-0.4); HEMOGLOBIN 7.7 g/dL (12.0-16.0); LYMPHOCYTES # (AUTO) 1.7 K/uL (2.5-16.5); MEAN CORPUSCULAR HEMOGLOBIN 17 pg (27-31); MEAN CORPUSCULAR HGB CONC 29 g/dL (33-37); MEAN CORPUSCULAR VOLUME 60.8 fL (80-94); MONOCYTES # (AUTO) 0.5 K/uL (0.8-1.0); MONOCYTES % (AUTO) 7.9 % (1.7-9.3); NEUTROPHILS # (AUTO) 3.8 K/uL (1.8-7.7); NEUTROPHILS % (AUTO) 60.5 % (42.2-75.2); PLATELET COUNT (AUTO) 347 K/uL (140-450); RED BLOOD CELL COUNT(AUTO) 4.43 MIL/uL (4.20-5.40); RED CELL DISTRIBUTION WIDTH 20.2 % (11.6-13.7); WHITE BLOOD COUNT (AUTO) 6.2 K/uL (4.8-10.8)
[2020-11-03 21:26] LABS: ALBUMIN 3.7 g/dL (3.4-5.0); ANION GAP 12.8 (8-16); CARBON DIOXIDE 26.2 mmol/L (21-32); CREATININE 0.6 mg/dL (0.6-1.3); TOTAL BILIRUBIN 0.4 mg/dL (0.0-1.0)
[2020-11-03 23:52] VITALS: BP 136/85
--- NOTE | 2020-11-03 23:52 | NUR ---
Patient discharged with v/s stable. Written and verbal after care instructions given and explained. Patient verbalized understanding. Ambulatory with steady gait. All questions addressed prior to discharge. Advised to follow up with PMD.
== END 2020-11-03 23:52 | disposition home or self-care (01) ==
LOC: MED 20:05
DX: R10.32 Left lower quadrant pain (principal); Z88.8 Allergy status to other drugs, medicaments and biological substances; Z91.013 Allergy to seafood
CPT/HCPCS: 36415; 76856; 80053; 81002; 81025; 83690; 84484; 85025; 93005; 93976; 96372; 99285; J1885

== ENCOUNTER 2021-11-14 21:12 | Emergency (ER) | payer MEDICAID ==
[~2021-11-14] VITALS: Ht 152.4 cm; Wt 49.4 kg
[2021-11-14 21:45] VITALS: BP 110/74
--- NOTE | 2021-11-14 21:54 | NUR ---
PATIENT AMBULATED TO THE AND BACK TO BED 6
--- NOTE | 2021-11-14 22:00 | NUR ---
41/F BIBM W C/O OF ABDOMINAL PAIN AND VOMITING OFF AND ON X 3 MONTHS W NAUSEA & WEIGHT LOSS. PATIENT STATED SHE FEELS BLOATED ALL THE TIME AFTER EATING. PATIENT DENIES D/C/SOB/CP. RR EVEN AND UNLABORED. PATIENT PLACED IN GOWN. BED LOW AND LOCKED. PMHX DENIES ALLERGY: IODINE, PCN MEDS DENIES
[2021-11-14] MEDS ORDERED: ONDANSETRON 4 MG/2 ML VIAL IVP ONE (22:25)
[2021-11-14] MEDS ORDERED: NACL 0.9% 1,000 ML IV SCH (22:25)
[2021-11-14] MEDS ORDERED: KETOROLAC 30 MG/ML VIAL IVP ONE (22:25)
[2021-11-14] MEDS ORDERED: ALUMINUM HYD/MAG/SIMETHICONE 30 ML, DICYCLOMINE HCL LIQUID 20 MG, LIDOCAINE VISCOUS 2% ... PO ONE ×3 (22:25)
[2021-11-14 22:52] LABS: BASOPHILS % (AUTO) 0.4 % (0.0-2.0); EOSINOPHILS # (AUTO) 0.1 K/uL (0-0.4); EOSINOPHILS % (AUTO) 1.4 % (0.0-4.0); HEMATOCRIT 25.4 % (36-48); HEMOGLOBIN 7.4 g/dL (12.0-16.0); LYMPHOCYTES # (AUTO) 2.1 K/uL (2.5-16.5); MEAN CORPUSCULAR HEMOGLOBIN 17 pg (27-31); MEAN CORPUSCULAR HGB CONC 29 g/dL (33-37); MEAN CORPUSCULAR VOLUME 58.4 fL (80-94); MONOCYTES # (AUTO) 0.3 K/uL (0.8-1.0); MONOCYTES % (AUTO) 4.2 % (1.7-9.3); NEUTROPHILS # (AUTO) 5.7 K/uL (1.8-7.7); PLATELET COUNT (AUTO) 452 K/uL (140-450); RED BLOOD CELL COUNT(AUTO) 4.34 MIL/uL (4.20-5.40); WHITE BLOOD COUNT (AUTO) 8.3 K/uL (4.8-10.8)
[2021-11-14] MEDS ORDERED: DICYCLOMINE HCL LIQUID 10 MG/5 ML UDC ONE (23:30)
[2021-11-14 23:34] LABS: ANION GAP 11.3 (8-16); CARBON DIOXIDE 27.3 mmol/L (21-32); CREATININE 0.6 mg/dL (0.6-1.3); POTASSIUM 3.6 mmol/L (3.5-5.1); TOTAL BILIRUBIN 0.5 mg/dL (0.0-1.0)
[2021-11-14] MEDS ORDERED: FAMO-92 PO (23:43)
[2021-11-14] MEDS ORDERED: ONDA-188 SL (23:43)
[2021-11-14] MEDS ORDERED: FERR325E14 PO (23:43)
[2021-11-14] MEDS ORDERED: KETOROLAC 30 MG/ML VIAL ONE (23:52)
[2021-11-14] MEDS ORDERED: ONDANSETRON 4 MG/2 ML VIAL ONE (23:53)
--- NOTE | 2021-11-15 00:22 | NUR ---
IV removed, catheter intact and site benign. Applied folded 4x4 gauze and tape to stop bleeding.
--- NOTE | 2021-11-15 00:26 | NUR ---
Patient discharged with v/s stable. Written and verbal after care instructions given on Anemia, and gastritis and explained. Patient alert, oriented and verbalized understanding of instructions. Ambulatory with steady gait. All questions addressed prior to discharge. ID band removed. Patient advised to follow up with PMD. Rx of Famotidine, Ferrous Sulfate and Zofran given.
[2021-11-15 00:27] VITALS: BP 129/78
--- NOTE | 2021-11-15 00:28 | NUR ---
Chart checked and completed.
== END 2021-11-15 00:26 | disposition home or self-care (01) ==
LOC: MED 21:12
DX: K29.70 Gastritis, unspecified, without bleeding (principal); Z88.0 Allergy status to penicillin; Z91.013 Allergy to seafood; Z88.8 Allergy status to other drugs, medicaments and biological substances; Z79.899 Other long term (current) drug therapy; Z86.718 Personal history of other venous thrombosis and embolism
CPT/HCPCS: 36415; 76705; 80053; 81002; 81025; 83690; 85025; 96361; 96374; 96375; 99284; J1885; J2405; J7030; Q0092